=== PATIENT | male | born 1940 | race Caucasian/White ===

== ENCOUNTER → 2023-03-22 10:02 | Outpatient (REF) | payer MEDICARE, OTHER, SELFPAY ==
[2023-03-22 11:11] LABS: Blood Urea Nitrogen 55 mg/dl (9-20); Calcium 9.7 mg/dl (8.4-10.2); Carbon Dioxide 24 mmol/L (22-30); Chloride 105 mmol/L (98-107); Glucose 197 mg/dl (70-99); Potassium 5.3 mmol/L (3.5-5.1); Sodium 135 mmol/L (135-145)
[2023-03-22 13:11] LABS: Glycohemoglobin (HgbA1c) 7.7 % (4.0-5.6)
== END ==
LOC: REG 10:02
PROVIDERS: ATTENDING PHYSICIAN Specialist; FAMILY PHYSICIAN Internal Medicine
DX: E11.9 Type 2 diabetes mellitus without complications (principal); N18.32 Chronic kidney disease, stage 3b
CPT/HCPCS: 36415; 80048; 83036

== ENCOUNTER → 2023-05-17 11:07 | Outpatient (REF) | payer MEDICARE, OTHER, SELFPAY ==
[2023-05-17 12:34] LABS: Blood Urea Nitrogen 55 mg/dl (9-20); Calcium 10.3 mg/dl (8.4-10.2); Carbon Dioxide 20 mmol/L (22-30); Chloride 108 mmol/L (98-107); Glucose 209 mg/dl (70-99); Potassium 5.4 mmol/L (3.5-5.1); Sodium 135 mmol/L (135-145); eGFR 29.36
[2023-05-17 14:54] LABS: Glycohemoglobin (HgbA1c) 7.6 % (4.0-5.6)
== END ==
LOC: REG 11:07
PROVIDERS: ATTENDING PHYSICIAN Internal Medicine
DX: E11.9 Type 2 diabetes mellitus without complications (principal); N18.32 Chronic kidney disease, stage 3b
CPT/HCPCS: 36415; 80048; 83036

== ENCOUNTER → 2023-07-17 10:28 | Outpatient (REF) | payer MEDICARE, OTHER, SELFPAY | LOC: REG 10:28 | PROVIDERS: ATTENDING PHYSICIAN Internal Medicine Gastroenterology | DX: K51.90 Ulcerative colitis, unspecified, without complications (principal) | CPT/HCPCS: 83993 ==

== ENCOUNTER → 2023-08-05 10:04 | Outpatient (REF) | payer MEDICARE, OTHER, SELFPAY | LOC: RAD 10:04 | PROVIDERS: ATTENDING PHYSICIAN Internal Medicine Gastroenterology; FAMILY PHYSICIAN Internal Medicine | DX: R13.19 Other dysphagia (principal) | CPT/HCPCS: 74221 ==

== ENCOUNTER → 2023-08-30 11:28 | Outpatient (REF) | payer MEDICARE, OTHER, SELFPAY ==
[2023-08-30 12:59] LABS: Albumin 3.8 g/dl (3.5-5.0); Blood Urea Nitrogen 55 mg/dl (9-20); Calcium 9.3 mg/dl (8.4-10.2); Carbon Dioxide 24 mmol/L (22-30); Chloride 106 mmol/L (98-107); Glucose 147 mg/dl (70-99); Potassium 5.4 mmol/L (3.5-5.1); Sodium 139 mmol/L (135-145); eGFR 29.36
[2023-08-30 13:14] LABS: Glycohemoglobin (HgbA1c) 6.4 % (4.0-5.6)
[2023-08-30 14:50] LABS: Protein/creatinine Ratio 1.3; Urine Protein 167 mg/dl
[2023-09-01 10:21] LABS: Intact PTH 89.6 pg/ml (13.6-85.8)
== END ==
LOC: REG 11:28
PROVIDERS: ATTENDING PHYSICIAN Specialist; FAMILY PHYSICIAN Internal Medicine; REFERRING PHYSICIAN Internal Medicine Gastroenterology
DX: I10 Essential (primary) hypertension (principal); N18.32 Chronic kidney disease, stage 3b; R80.9 Proteinuria, unspecified; E11.9 Type 2 diabetes mellitus without complications
CPT/HCPCS: 36415; 80048; 80069; 82570; 83036; 83970; 84156

== ENCOUNTER → 2023-09-17 06:34 | Day surgery (SDC) | payer MEDICARE, OTHER, SELFPAY ==
[2023-09-17 09:34] LABS: Glucose - Point of Care 75 mg/dl (70-99)
== END ==
LOC: GI 06:34
PROVIDERS: ATTENDING PHYSICIAN Internal Medicine Gastroenterology
DX: K51.919 Ulcerative colitis, unspecified with unspecified complications (principal); D12.0 Benign neoplasm of cecum; D12.5 Benign neoplasm of sigmoid colon; K57.30 Diverticulosis of large intestine without perforation or abscess without bleeding; K55.20 Angiodysplasia of colon without hemorrhage; K64.0 First degree hemorrhoids; R13.10 Dysphagia, unspecified; K22.2 Esophageal obstruction; K31.7 Polyp of stomach and duodenum; K31.89 Other diseases of stomach and duodenum; Z79.01 Long term (current) use of anticoagulants
CPT/HCPCS: 45385; 45380; 43251; 43239; 88305; 82962; 88342

== ENCOUNTER → 2023-10-22 14:00 | Outpatient (REF) | payer MEDICARE, OTHER, SELFPAY ==
[2023-10-22 14:38] LABS: % Basophils 0.6 % (0-2); % Eosinophils 1.9 % (0-6); % Immature Granulocytes 0.3 % (0-0.5); % Lymphocytes 33.4 % (20.5-51.1); % Monocytes 10.5 % (1.7-9.3); % Neutrophils 53.3 % (42.2-75.2); Absolute Eosinophils 0.1 10^3/uL (0-0.7); Absolute Lymphocytes 2.1 10^3/uL (1.2-3.4); Absolute Monocytes 0.7 10^3/uL (0.1-0.6); Absolute Neutrophils 3.3 10^3/uL (1.4-6.5); Hematocrit 27.7 % (39.0-52.0); Hemoglobin 8.9 g/dL (13.0-18.0); Mean Corp Hgb Conc. 32.1 g/dL (33.0-37.0); Mean Corpuscular Volume 96.5 fL (80.0-94.0); Mean Platelet Volume 8.9 fL (7.4-10.4); Nucleated Red Blood Cells % 0 % (-); Platelet Count 122 10^3/uL (130-400); Red Blood Cell Count 2.87 10^6/uL (4.70-6.10); Red Cell Dist. Width 13.9 % (11.5-14.5); White Blood Cell Count 6.2 10^3/uL (4.8-10.8)
[2023-10-22 15:36] LABS: ALT (SGPT) 12 U/L (0-50); AST (SGOT) 23 U/L (17-59); Albumin 3.9 g/dl (3.5-5.0); Alkaline Phosphatase 104 U/L (38-126); Blood Urea Nitrogen 54 mg/dl (9-20); Calcium 9.8 mg/dl (8.4-10.2); Carbon Dioxide 21 mmol/L (22-30); Chloride 107 mmol/L (98-107); Direct Bilirubin 0.5 mg/dl (0.0-0.4); Glucose 119 mg/dl (70-99); Potassium 5.2 mmol/L (3.5-5.1); Sodium 142 mmol/L (135-145); Total Bilirubin 0.6 mg/dl (0.2-1.3); Total Protein 6.8 g/dl (6.3-8.2); eGFR 26.44
[2023-10-22 15:39] LABS: C-Reactive Protein < 5.00 mg/L (0.0-10.00)
== END ==
LOC: REG 14:00
PROVIDERS: ATTENDING PHYSICIAN Internal Medicine Gastroenterology; FAMILY PHYSICIAN Internal Medicine
DX: K51.90 Ulcerative colitis, unspecified, without complications (principal); E11.42 Type 2 diabetes mellitus with diabetic polyneuropathy
CPT/HCPCS: 36415; 80053; 82248; 83036; 85025; 86140

== ENCOUNTER → 2023-12-22 15:47 | Outpatient (REF) | payer MEDICARE, OTHER, SELFPAY | LOC: RAD 15:47 | PROVIDERS: ATTENDING PHYSICIAN Internal Medicine Gastroenterology; FAMILY PHYSICIAN Internal Medicine | DX: R19.00 Intra-abdominal and pelvic swelling, mass and lump, unspecified site (principal) | CPT/HCPCS: 76700 ==

== ENCOUNTER → 2024-01-25 11:28 | Outpatient (REF) | payer MEDICARE, OTHER, SELFPAY ==
[2024-01-25 12:46] LABS: % Basophils 0.5 % (0-2); % Eosinophils 0.9 % (0-6); % Immature Granulocytes 0.5 % (0-0.5); % Lymphocytes 23.5 % (20.5-51.1); % Monocytes 10.5 % (1.7-9.3); % Neutrophils 64.1 % (42.2-75.2); Absolute Eosinophils 0.1 10^3/uL (0-0.7); Absolute Lymphocytes 1.5 10^3/uL (1.2-3.4); Absolute Monocytes 0.7 10^3/uL (0.1-0.6); Absolute Neutrophils 4.2 10^3/uL (1.4-6.5); Hematocrit 27.4 % (39.0-52.0); Hemoglobin 8.6 g/dL (13.0-18.0); Mean Corp Hgb Conc. 31.4 g/dL (33.0-37.0); Mean Corpuscular Hgb 30.3 pg (27.0-31.0); Mean Corpuscular Volume 96.5 fL (80.0-94.0); Mean Platelet Volume 9.1 fL (7.4-10.4); Nucleated Red Blood Cells % 0 % (-); Platelet Count 141 10^3/uL (130-400); Red Blood Cell Count 2.84 10^6/uL (4.70-6.10); Red Cell Dist. Width 13.9 % (11.5-14.5); White Blood Cell Count 6.6 10^3/uL (4.8-10.8)
[2024-01-25 13:52] LABS: ALT (SGPT) 14 U/L (0-50); AST (SGOT) 22 U/L (17-59); Albumin 3.8 g/dl (3.5-5.0); Alkaline Phosphatase 121 U/L (38-126); Blood Urea Nitrogen 65 mg/dl (9-20); Calcium 8.9 mg/dl (8.4-10.2); Carbon Dioxide 24 mmol/L (22-30); Chloride 104 mmol/L (98-107); Direct Bilirubin 0.3 mg/dl (0.0-0.4); Glucose 148 mg/dl (70-99); Potassium 5.1 mmol/L (3.5-5.1); Sodium 139 mmol/L (135-145); Total Bilirubin 0.4 mg/dl (0.2-1.3); Total Protein 6.8 g/dl (6.3-8.2); eGFR 26.44
== END ==
LOC: REG 11:28
PROVIDERS: ATTENDING PHYSICIAN Internal Medicine Gastroenterology; FAMILY PHYSICIAN Internal Medicine
DX: K51.90 Ulcerative colitis, unspecified, without complications (principal)
CPT/HCPCS: 36415; 80048; 80076; 85025; 86140

== ENCOUNTER → 2024-03-01 13:47 | Outpatient (REF) | payer MEDICARE, OTHER, SELFPAY | LOC: HWRCS 13:47 | PROVIDERS: ATTENDING PHYSICIAN Internal Medicine Cardiovascular Disease; FAMILY PHYSICIAN Internal Medicine | DX: I48.0 Paroxysmal atrial fibrillation (principal) | CPT/HCPCS: 93306 ==

== ENCOUNTER → 2024-03-21 12:13 | Outpatient (REF) | payer MEDICARE, OTHER, SELFPAY ==
[2024-03-21 13:34] LABS: % Basophils 0.4 % (0-2); % Eosinophils 0.6 % (0-6); % Immature Granulocytes 0.4 % (0-0.5); % Lymphocytes 22.9 % (20.5-51.1); % Monocytes 11.3 % (1.7-9.3); % Neutrophils 64.4 % (42.2-75.2); Absolute Lymphocytes 1.6 10^3/uL (1.2-3.4); Absolute Monocytes 0.8 10^3/uL (0.1-0.6); Absolute Neutrophils 4.5 10^3/uL (1.4-6.5); Hematocrit 26.9 % (39.0-52.0); Hemoglobin 8.2 g/dL (13.0-18.0); Mean Corp Hgb Conc. 30.5 g/dL (33.0-37.0); Mean Corpuscular Hgb 29.4 pg (27.0-31.0); Mean Corpuscular Volume 96.4 fL (80.0-94.0); Nucleated Red Blood Cells % 0 % (-); Platelet Count 151 10^3/uL (130-400); Red Blood Cell Count 2.79 10^6/uL (4.70-6.10)
[2024-03-21 14:49] LABS: Free T4 0.81 ng/dl (0.78-2.19)
[2024-03-21 14:51] LABS: Protein/creatinine Ratio 1.5; Urine Protein 136 mg/dl
[2024-03-21 15:34] LABS: ALT (SGPT) 12 U/L (0-50); AST (SGOT) 22 U/L (17-59); Albumin 4.2 g/dl (3.5-5.0); Alkaline Phosphatase 149 U/L (38-126); Blood Urea Nitrogen 64 mg/dl (9-20); Calcium 9.2 mg/dl (8.4-10.2); Carbon Dioxide 21 mmol/L (22-30); Chloride 107 mmol/L (98-107); Direct Bilirubin 0.6 mg/dl (0.0-0.4); Glucose 80 mg/dl (70-99); HDL Cholesterol 39 mg/dl; LDL Cholesterol, Calculated 80 mg/dl; Phosphorus 4.2 mg/dl (2.5-4.5); Potassium 5.8 mmol/L (3.5-5.1); Sodium 140 mmol/L (135-145); Total Bilirubin 0.8 mg/dl (0.2-1.3); Total Cholesterol 141 mg/dl (50-199); Total Protein 7.3 g/dl (6.3-8.2); Triglyceride 114 mg/dl (10-149); Very Low Density Lipoprotein 22 mg/dl (0-30); eGFR 27.83
[2024-03-22 10:24] LABS: Intact PTH 90.6 pg/ml (13.6-85.8)
== END ==
LOC: REG 12:13
PROVIDERS: ATTENDING PHYSICIAN Specialist; FAMILY PHYSICIAN Internal Medicine
DX: N18.32 Chronic kidney disease, stage 3b (principal); Z94.4 Liver transplant status; E78.2 Mixed hyperlipidemia; E03.9 Hypothyroidism, unspecified; Z12.5 Encounter for screening for malignant neoplasm of prostate
CPT/HCPCS: 36415; 80061; 80069; 80076; 82570; 83970; 84156; 84439; 84443; 85025; G0103

== ENCOUNTER → 2024-03-23 15:51 | Outpatient (REF) | payer MEDICARE, OTHER, SELFPAY ==
[2024-03-23 16:35] LABS: % Basophils 0.4 % (0-2); % Eosinophils 1.6 % (0-6); % Immature Granulocytes 0.3 % (0-0.5); % Lymphocytes 34.3 % (20.5-51.1); % Monocytes 10.3 % (1.7-9.3); % Neutrophils 53.1 % (42.2-75.2); Absolute Eosinophils 0.1 10^3/uL (0-0.7); Absolute Lymphocytes 2.4 10^3/uL (1.2-3.4); Absolute Monocytes 0.7 10^3/uL (0.1-0.6); Absolute Neutrophils 3.7 10^3/uL (1.4-6.5); Hematocrit 26.7 % (39.0-52.0); Hemoglobin 8.4 g/dL (13.0-18.0); Mean Corp Hgb Conc. 31.5 g/dL (33.0-37.0); Mean Corpuscular Hgb 30.3 pg (27.0-31.0); Mean Corpuscular Volume 96.4 fL (80.0-94.0); Mean Platelet Volume 8.8 fL (7.4-10.4); Nucleated Red Blood Cells % 0 % (-); Platelet Count 133 10^3/uL (130-400); Red Blood Cell Count 2.77 10^6/uL (4.70-6.10); Reticulocyte Count 2.6 % (0.4-2.8)
[2024-03-23 17:03] LABS: ALT (SGPT) 12 U/L (0-50); AST (SGOT) 21 U/L (17-59); Albumin 3.7 g/dl (3.5-5.0); Alkaline Phosphatase 139 U/L (38-126); Blood Urea Nitrogen 55 mg/dl (9-20); Direct Bilirubin 0.4 mg/dl (0.0-0.4); Iron 117 ug/dl (49-181); LDH 163 U/L (120-246); Total Bilirubin 0.5 mg/dl (0.2-1.3); Total Protein 6.9 g/dl (6.3-8.2)
[2024-03-23 17:12] LABS: Percent Saturation 35 % (20-50); Total Iron Binding Capacity 328 ug/dl (261-462)
[2024-03-23 17:15] LABS: Erythrocyte Sed Rate 78 mm/hour (0-20)
[2024-03-23 17:38] LABS: Ferritin 44.8 ng/ml (17.9-464.0)
[2024-03-23 18:09] LABS: Folate 19.4 ng/ml (2.76-20); Vitamin B12 1000 pg/ml (239-931)
[2024-03-25 22:13] LABS: Erythropoietin (EPO) 18 mU/mL (4-27)
[2024-03-26 02:09] LABS: Haptoglobin 122 mg/dL (30-200)
== END ==
LOC: REG 15:51
PROVIDERS: ATTENDING PHYSICIAN Internal Medicine Hematology & Oncology; FAMILY PHYSICIAN Internal Medicine
DX: C44.82 Squamous cell carcinoma of overlapping sites of skin (principal); D63.1 Anemia in chronic kidney disease; Z79.899 Other long term (current) drug therapy
CPT/HCPCS: 36415; 80076; 82565; 82607; 82668; 82728; 82746; 82784; 83010; 83521; 83540; 83550; 83615; 84155; 84165; 84520; 85025; 85045; 85652; 86334

== ENCOUNTER → 2024-03-27 12:59 | Outpatient (REF) | payer MEDICARE, OTHER, SELFPAY ==
[2024-03-27 14:18] LABS: Blood Urea Nitrogen 46 mg/dl (9-20); Calcium 9.3 mg/dl (8.4-10.2); Carbon Dioxide 22 mmol/L (22-30); Chloride 105 mmol/L (98-107); Glucose 164 mg/dl (70-99); Potassium 5.2 mmol/L (3.5-5.1); Sodium 138 mmol/L (135-145); eGFR 29.36
== END ==
LOC: REG 12:59
PROVIDERS: ATTENDING PHYSICIAN Hospitalist; FAMILY PHYSICIAN Internal Medicine
DX: N18.32 Chronic kidney disease, stage 3b (principal); R80.9 Proteinuria, unspecified
CPT/HCPCS: 36415; 80048

== ENCOUNTER 2024-04-13 12:05 | Inpatient (IN) | payer MEDICARE, OTHER, SELFPAY ==
[2024-04-13] VITALS (8 sets, daily range): BP systolic 135–171; BP diastolic 64–120; BMI 26.3; BMI 27.1
--- NOTE | 2024-04-13 08:34 | ED.GENMED ---
History of Present Illness
General
Chief Complaint: Breathing Problem
Source: patient
Exam Limitations: none
Time Seen by Provider: 04/13/24 08:09
Nursing documentation reviewed up to this point in time: agreed with
History of Present Illness
History of Present Illness:
Patient with history of chronic atrial fibrillation and renal insufficiency, presents to ED secondary to worsening shortness of breath at rest, but worse with exertion over the past 5 days. Denies chest pain. Denies dizziness. Denies chest
palpitations. Denies coughing. Denies nausea, vomiting, or diarrhea. Denies recent illness. Denies recent travel or surgery. Patient does take Eliquis chronically. Denies previous history of similar symptoms. Of note, secondary to weakness
and fatigue associated with chronic anemia, patient received iron transfusion 1 day prior to onset of his symptoms.
Past History
Past History
ED Past Medical History: Arrthythmia (Atrial fibrillation), CAD, HTN, Hypercholesterolemia, IDDM and Other (History of colitis he, renal insufficiency, gout, osteoarthritis, hypothyroidism)
ED Past Surgical History: Cardiac (cabg, and ablation) and Other (liver transplant, hernia repair, and skin cancer removal)
Social History
Tobacco: Former smoker
Alcohol: None
Drug: None
Living: with family
Employment: Retired
Family History
Family History: Other (nc)
Review of Systems
Review of Systems
Allergies reviewed?: Yes
All Other Systems: ROS reviewed and negative except as documented in HPI and ROS
Constitutional: Reports no symptoms; Denies fever or chills
EENT: Reports no symptoms
Respiratory: Reports trouble breathing; Denies cough
Cardiac: Reports no symptoms; Denies chest pain or palpitations
ABD/GI: Reports no symptoms; Denies nausea or vomiting
: Reports no symptoms
Musculoskeletal: Reports no symptoms; Denies edema
Skin: Reports no symptoms
Neurological: Reports no symptoms
Phy Exam
Physical Exam
Physical Exam:
Physical Exam
General: mild distress, not acutely ill. afebrile.
Head: nc/at. eomi
Neck: supple. normal range of motion. no jvd.
Heart: s1/s2 regular rate and rhythm, no murmur.
Lungs: mild respiratory distress. crackles bilaterally
Abdomen: normal bowel sounds. not tender. no distention
Neuro: alert and oriented x 3. no focal neurological deficits
Skin: no rash
Psychiatric: well kept. interactive and cooperative
Extremities: no edema. no calf tenderness.
Scores
Heart Failure Risk
Heart Failure Risk Score: Yes
History of Stroke or TIA: No
History of intubation for respiratory distress: No
Heart rate on ED arrival >/= 110: No
SaO2 <90% on arrival on room air: Yes
HR >/=110 during 3min walk test (or too ill to perform test): No
ECG has acute ischemic changes: No
Urea >/=12mmol/L (BUN 33.6mg/dL): Yes
Serum CO2>/=35mmol/L: No
Troponin I or T elevated to PA Level (0.4mg/dL): No
NT-proBNP >/=5,000ng/L (5,000pg/ml): Yes
HF Risk Score: 3
Admission Status: HIGH RISK 15.9% Consider SNF treatment or admission to hospital
Course
Orders/Labs/Results
Orders:
Orders
04/13/24 Breakfast
2000 calorie (17 carb) Diabetic
At Your Request: Full Participation
04/13/24 08:12
Electrocardiogram (*1) Urgent
Reason for Study: Shortness of Breath
EKG- Treatment ONCE
04/13/24 08:13
CR Chest - 2 Views Urgent
Comment:
Reason For Exam: sob
04/13/24 08:35
Complete Blood Count/With Diff Urgent
Comprehensive Metabolic Panel Urgent
Glycohemoglobin (HgbA1c) Urgent
Magnesium Urgent
NT-proBNP Urgent
TSH Urgent
Comment: ADD
Troponin I Urgent
04/13/24 09:19
Apixaban [Eliquis] 2.5 mg PO NOW STA
Furosemide [Lasix] 20 mg IV NOW STA
04/13/24 10:31
CT Chest W/o Iv Contrast Urgent
Comment:
Reason For Exam: SOB, RML opacification
04/13/24 11:35
Add On- LAB Routine
Tests Added?: TSH
CARDIOLOGY CONSULT Routine
Consulting Provider: Nathan Pizano
Was physician already notified: Yes
Reason for consult: CHF
04/13/24 11:41
CT Abd/pel (oral only)-DH Only Routine
Comment:
Reason For Exam: lesion sen on CT chest, large R abd hernia
Iohexol [Omnipaque] See Protocol PO NOW STA
04/13/24 11:47
Admit/Transfer Patient As Directed
Co-Sign Provider:
Level of Care: Inpatient admission
Assign to:: Telemetry
Physician / Group: hospitalist
Diagnosis: CHF
Reason for Telemetry: Arrhythmia
Date to Stop Telemetry: 04/16/24
Time to Stop Telemetry: 11:00
Reason for Hospitalization: CHF
Expected length of stay greater than two midnights?: Yes
ELOS- Estimated Length of Stay in days: 3
I certify the patient meets the requirements for IP care: Yes
PRN Pain Medication Management As Directed
May give lesser potent ordered pain med per pt: Yes
preference::
Protocol:: Medication orders for pain may be administered in a
manner that supports deferring to patient preference
when the pt is:
- Requesting an ordered lesser potent pain medication.
Least to most potent pain medications are defined
as: acetaminophen < NSAID < tramadol < opioids
(morphine, oxycodone, hydromorphone).
- Requesting a lesser dose of the same medication IF
ORDERED.
- Requesting a less intrusive route of administration
if both routes are prescribed by the provider (PO <
IV).
04/13/24 11:48
Code Status As Directed
Resuscitation Status: Full Code
04/13/24 12:00
Rx Incentive Spirometry [RESP] Routine
Frequency: q1h while awake
04/13/24 14:40
Acetaminophen [Tylenol] 650 mg PO Q6HPRN PRN
Dextrose 50%-Water [Dextrose 50% Syringe] 12.5 grams IV [id number] PRN
Glucagon [GlucaGen] 1 mg IM PRN PRN
Ondansetron Injectable [Zofran] 4 mg IV Q8HPRN PRN
Polyethylene Glycol Powder [Miralax] 17 grams PO DAILYPRN PRN
04/13/24 14:40
Add On- LAB Routine
Tests Added?: HgbA1C to today's lab
HF DIETARY CONSULT Routine
HF EDUCATOR CONSULT Routine
Comment:
Activity As Directed
Activity Level: Out of Bed-Early Mobility
Intake/ Output As Directed
Frequency: Per unit guidelines
Patient Education As Directed
Type: CHF folder
Comment: give on admission. Document in Interdisciplinary Education record
Sleep Apnea Assessment by RN As Directed
Comment:
Physician Instructions:
Vital Signs As Directed
Frequency: Other
Additional Instructions:: Q12 or per unit guidelines if more frequent.
Weight As Directed
Frequency: Daily
Type of Scale: Standing Scale
Comment: Daily morning weight. If unable to stand, use balanced bed scale.
Weight As Directed
Frequency: Once
Type of Scale: Standing Scale
Comment: Upon Admission. If unable to stand, use balanced bed scale.
Pulse Ox/cont/shift [RESP] Routine
Quantity: 1
Special Instructions: Daily pulse oximetry at rest. If greater than 92% at rest also obtain pulse oximetry
while ambulating as tolerated.
04/13/24 16:30
Insulin Aspart Corrective Mod [Novolog Flexpen-Moderate Resistance] See Protocol SC AC
04/13/24 18:00
Pravastatin Sodium [Pravachol] 40 mg PO QPM
Sulfasalazine [Azulfidine] 1,000 mg PO QPM
04/13/24 20:00
Apixaban [Eliquis] 2.5 mg PO BID
Metoprolol [Lopressor] 25 mg PO BID
Mycophenolate Mofetil 500 mg PO BID
cyclosporine modified 50 mg PO BID
insulin lispro protamin-lispro [Humalog Mix 75-25 KwikPen] 18 unit SQ BID
04/13/24 22:00
dutasteride 0.5 mg PO HS
04/14/24 06:00
Complete Blood Count/With Diff IN AM
Comprehensive Metabolic Panel IN AM
Glycohemoglobin (HgbA1c) IN AM
Magnesium IN AM
Levothyroxine [Synthroid] 100 mcg PO DAILY@0600
04/14/24 08:00
Amlodipine [Norvasc] 10 mg PO DAILY
Calcitriol [Rocaltrol] 0.25 mcg PO DAILY
FOLic ACID [Folvite] 1 mg PO DAILY
Prednisone [Deltasone] 5 mg PO MoWeFr@0800
Sulfasalazine [Azulfidine] 500 mg PO DAILY
04/16/24 11:00
DC Protocol for Telemetry ONCE
Abnormal Lab Results
04/13/24
08:35
RBC 2.98 L 10^6/uL
(4.70-6.10)
Hgb 9.1 L g/dL
(13.0-18.0)
Hct 29.4 L %
(39.0-52.0)
MCV 98.7 H fL
(80.0-94.0)
MCHC 31.0 L g/dL
(33.0-37.0)
Absolute Monos (auto) 1.0 H 10^3/uL
(0.1-0.6)
Monocytes % 11.9 H %
(1.7-9.3)
Chloride 109 H mmol/L
(98-107)
BUN 56 H mg/dl
(9-20)
Creatinine 2.0 H mg/dL
(0.7-1.3)
Glucose 128 H mg/dl
(70-99)
Alkaline Phosphatase 192 H U/L
(38-126)
TSH 18.30 H uIU/ml
(0.47-4.68)
04/13/24 08:35
04/13/24 08:35
Vital Signs
Initial and Last Documented VS:
Initial Vital Signs
BP
160/106
04/13/24 08:11
Last Documented Vital Signs
Temp Pulse Resp BP Pulse Ox
97.9 F 75 20 167/94 95
04/13/24 15:09 04/13/24 15:09 04/13/24 15:09 04/13/24 15:09 04/13/24 15:09
MDM/Problems Addressed
MDM/Problems Addressed:
During short ambulation, patient noted to become mildly short of breath with desaturation (88% on room air), as well as mild chest tightness.
History, exam, blood work, and chest x-ray, consistent with likely hypoxia and associated shortness of breath, secondary to fluid overload. Patient will be admitted for IV diuretic and continual supplemental oxygen administration.
*EKG
Interpreted by ED Provider?: Yes
EKG Intrepretation Date: 04/13/24
Heart Rate: 89
Rate: normal
Rhythm: a-fib and PVC's
Morrison: normal axis
*Critical Care Note
Total Time (30-74mins, 75-104mins- exclusive of procedures): Not Applicable
ED Attending Note
-
Portions of this chart may have been created with voice recognition software.� Occasional wrong word or��sound alike� substitutions may have occurred due to the inherent limitations of voice recognition software.
Discharge Plan
Departure
Patient Disposition: Admit
Date of Disposition: 04/13/24
Time of Disposition: 09:33
Admit to: Telemetry
Presentation/result/management discussed w/ accepting MD/DO: Hospitalist
Discharge Problem:
DYSON (dyspnea on exertion), Fluid overload, Hypoxia
Interventions
Interventions:
*Risk Screen - Suicide Last Done: 04/13/24 08:25
*General Assessment Last Done: 04/13/24 08:18
*Neglect/Abuse Screening Last Done: 04/13/24 08:21
*ED- Fall Risk Assessment Last Done: 04/13/24 08:22
*ED COVID-19 Vaccine History Last Done: 04/13/24 08:25
*Nursing Disposition Last Done: 04/13/24 14:27
ED- Cardiac Assessment Last Done: 04/13/24 08:18
ED- Pulmonary Assessment Last Done: 04/13/24 08:24
Discharge Date and Time
Discharge Date/Time: 04/13/24 14:27
[2024-04-13 08:41] LABS: % Basophils 0.4 % (0-2); % Eosinophils 0.6 % (0-6); % Immature Granulocytes 0.4 % (0-0.5); % Lymphocytes 22.8 % (20.5-51.1); % Monocytes 11.9 % (1.7-9.3); % Neutrophils 63.9 % (42.2-75.2); Absolute Eosinophils 0.1 10^3/uL (0-0.7); Absolute Lymphocytes 1.9 10^3/uL (1.2-3.4); Absolute Neutrophils 5.4 10^3/uL (1.4-6.5); Hematocrit 29.4 % (39.0-52.0); Hemoglobin 9.1 g/dL (13.0-18.0); Mean Corpuscular Hgb 30.5 pg (27.0-31.0); Mean Corpuscular Volume 98.7 fL (80.0-94.0); Mean Platelet Volume 8.6 fL (7.4-10.4); Nucleated Red Blood Cells % 0 % (-); Platelet Count 192 10^3/uL (130-400); Red Blood Cell Count 2.98 10^6/uL (4.70-6.10); Red Cell Dist. Width 14.2 % (11.5-14.5); White Blood Cell Count 8.5 10^3/uL (4.8-10.8)
[2024-04-13 09:02] LABS: ALT (SGPT) 11 U/L (0-50); AST (SGOT) 20 U/L (17-59); Albumin 3.8 g/dl (3.5-5.0); Alkaline Phosphatase 192 U/L (38-126); Blood Urea Nitrogen 56 mg/dl (9-20); Calcium 9.6 mg/dl (8.4-10.2); Carbon Dioxide 22 mmol/L (22-30); Chloride 109 mmol/L (98-107); Estimated Creatinine Clearance 30 ml/min; Glucose 128 mg/dl (70-99); Magnesium 1.7 mg/dl (1.6-2.3); Potassium 5.1 mmol/L (3.5-5.1); Sodium 139 mmol/L (135-145); Total Bilirubin 0.8 mg/dl (0.2-1.3); Total Protein 7.1 g/dl (6.3-8.2); eGFR 32.91
[2024-04-13 09:05] LABS: NT-proBNP 7830 pg/ml; Troponin I 0.026 ng/ml
[2024-04-13] MEDS: ELIQUIS 2.5 MG PO ×2 (09:43→20:20)
[2024-04-13] MEDS: LASIX 20 MG IV (09:43)
--- NOTE | 2024-04-13 10:29 | HPS.HSE ---
Family Physician
-
Family Physician: Juanjose Anthony
Chief Complaint
-
SOB
History of Present Illness
83yo F with liver transplant, diverticulosis UC, HTN, Afib, CAD s/p SD, HTN, HLD, DM, gout, hypothyroidism, CKD came with dyspnea on excertion started 1 week ago with orthopnea and anxiety. No chest pain noted. Patient was walking in hallway in ED
with ED physician and desaturated to 87% on exertion. WIth elevated BNP - concern for subacute CHF.
Medical History
Past Medical History
Past Medical History: Reports Other
Additional Past Medical History:
See HPI
Past Surgical History: Reports Other
Additional Past Surgical History:
hernia repair, liver transplant
Social History
Tobacco: Non-smoker
Alcohol: None
Drug: None
Family History
Family History: Not pertinent
Allergies / Home Medications
Allergies reflects when Allergies were last updated in [employer].
Home Medications with original date entered in [employer]
Allergy/Medication List:
Allergies
Allergy/AdvReac Type Severity Reaction Status Date / Time
No Known Allergies Allergy Verified 04/13/24 08:16
Home Medications
metoprolol tartrate 25 mg tablet 25 mg PO BID Blood pressure 05/16/13
cyclosporine modified 50 mg capsule 50 mg PO BID anti-rejection 07/05/18
folic acid 1 mg tablet 1 mg PO DAILY Supplement 07/05/18
prednisone 5 mg tablet 5 mg PO MOWEFR Anti-rejection 07/05/18
apixaban 2.5 mg tablet (Eliquis) 2.5 mg PO BID ##0 01/16/20
amlodipine 10 mg tablet (Norvasc) 10 mg PO DAILY 04/13/24
calcitriol 0.25 mcg capsule 0.25 mcg PO DAILY 04/13/24
dutasteride 0.5 mg capsule 0.5 mg PO HS 04/13/24
insulin lispro protamine-lispro 100 unit/mL (75-25) subcutaneous pen (Humalog Mix 75-25 KwikPen) 18 unit SQ BID 04/13/24
levothyroxine 100 mcg tablet (Synthroid) 100 mcg PO DAILY 04/13/24
mycophenolate mofetil 500 mg tablet 500 mg PO BID 04/13/24
pravastatin 40 mg tablet 40 mg PO QPM 04/13/24
sulfasalazine 500 mg tablet 1,000 mg PO QPM 04/13/24
sulfasalazine 500 mg tablet 500 mg PO DAILY 04/13/24
vitamins A,C,W-pajv-nxbqiq 2,148 mcg-113 mg-45 mg-17.4 mg tablet (PreserVision AREDS) 1 tab PO DAILY 04/13/24
Review of Systems
-
History Source: Patient
A 12 point ROS was completed and negative except as noted: Yes
Constitutional: Reports Fatigue
Respiratory: Reports Trouble Breathing
Physical Exam
Vital Signs
Vital Signs
Temp Pulse Resp BP Pulse Ox
98.3 F 88 25 147/93 96
04/13/24 08:16 04/13/24 10:15 04/13/24 10:15 04/13/24 10:00 04/13/24 08:24
Physical Exam
General: No Apparent Distress, Comfortable and Conversant
HEENT: Anicteric, Moist mucous membranes and Atraumatic
Respiratory: Rales (L); No Wheezes, Rhonchi or Crackles
Cardiac: S1/S2 and Irregular Rhythm; No Murmur
GI: Soft, Non Tender, Non Distended and Other (R large abd hernia)
Genito-urinary: No costovertebral tender
Musculoskeletal: No Clubbing, No Cyanosis and No Edema
Skin: Warm; No Dry or Rash
Neuro: Awake, Alert, Oriented and AO x 3
Psych: Calm
Laboratory Results
-
04/13/24 08:35
04/13/24 08:35
Laboratory Results
Total Bilirubin 0.8 mg/dl (0.2-1.3) 04/13/24 08:35
AST 20 U/L (17-59) 04/13/24 08:35
ALT 11 U/L (0-50) 04/13/24 08:35
Alkaline Phosphatase 192 U/L (38-126) H 04/13/24 08:35
Troponin I 0.026 ng/ml 04/13/24 08:35
Data Reviewed
-
Diagnostic Radiology: Report Reviewed by me
Lab Data: Labs Reviewed by me
Impression/Plan
-
A/P:
#Acute on chronic HFpEF exacerbation
#Afib, unspecified
Lasix, daily weight, follow Cr and BMP
Echo 03/01/24 - EF 55, no regional wall motion abnormalities seen, stage II diastolic dysfunction, severe L atrial dilation, moderate , dilated aortic root 4.3cm and mild pulmonary HTN
CT with subsegmental atelectasis and tiny pleural effusions - incentive spirometry
EKG with Afib
#R abdominal hernia
not painful, not incarcerated
Hx of repar that failed
Outpatient [facility] follow up advised
#Chronic anemia
most likely 2/2 UC
cont to follow CBC
#Chronic alk. phos elevation
#Hx of liver transplant
cont antirejection drugs
follow LFT
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
#DM type 2 with nephropathy
Insulin, DM diet, accuchecks and sliding scale
#CKD stage 3b
#HLD
#Essential HTN
#Hx of DVT
#UC
#Hypothyroidism
#Essential HTN
cont home meds
check TSH
DVT ppx on ELiquis renal adjusted
Full code - discussed in details with patient
I have spent at least 77min reviewing chart, test results, communication with consultants and direct patient care
--- NOTE | 2024-04-13 11:40 | CON.CAR ---
Addendum entered and electronically signed by Nathan Pizano MD 04/13/24 16:22:
Patient seen and examined in collaboration with [employer]; agree with below.
-83-year-old male with CAD status-post CABG (2010), permanent atrial fibrillation (on Eliquis), moderate , hypertension, hyperlipidemia, prior liver transplantation, anemia, diabetes, and CKD admitted with dyspnea; patient is not on Lasix at home.
-Recommend Lasix 40 mg IV twice daily for now for acute HFpEF; patient will likely need Lasix on discharge to home.
-Monitor renal function.
-Recent echo 2 months ago; no need to repeat.
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
-Will continue to follow.
Original Note:
Consultation
Consultation Request
Date/Time Consultation Requested: 04/13/24 1135
Date/Time Consultation Performed: 04/13/24 1200
Requesting Provider: Dr. Flannery
Performing Provider: Estefania WILSON for Dr. Pizano
Reason for Consultation: CHF
Medical History
-
Chief Complaint: SOB
History of Present Illness:
83 y/o male (cardiology patient of Dr. Barr) with moderate , permanent AFIB on Eliquis, CAD with hx CABG 2010, hypertension, dyslipidemia, anemia, CKD3, DM2, and remote liver tx who is here for evaluation of SOB. Briefly, his chronic DYSON has
been worsening recently. Then, on Wednesday, he had an iron infusion and since then has not been able to get a full breath. He is in no distress at the time of my assessment. No fever or chills. Is having cough. No CP. No orthopnea, weight gain, or
significant edema.
Past Medical History
Past Medical History: Arrhythmias, CAD, HTN and Hypercholesterolemia
Social History
Tobacco: Non-Smoker
Personal:
Living: With Family
Family History
Family History: Reviewed & Not Pertinent
Allergies / Home Medications
Allergy/AdvReac Type Severity Reaction Status Date / Time
No Known Allergies Allergy Verified 04/13/24 08:16
�Medication �Instructions �Recorded �Confirmed �Type
metoprolol tartrate 25 mg tablet 25 mg PO BID Blood pressure 05/16/13 04/13/24 History
cyclosporine modified 50 mg capsule 50 mg PO BID anti-rejection 07/05/18 04/13/24 History
folic acid 1 mg tablet 1 mg PO DAILY Supplement 07/05/18 04/13/24 History
prednisone 5 mg tablet 5 mg PO MOWEFR Anti-rejection 07/05/18 04/13/24 History
apixaban 2.5 mg tablet (Eliquis) 2.5 mg PO BID ##0 01/16/20 04/13/24 Rx
amlodipine 10 mg tablet (Norvasc) 10 mg PO DAILY 04/13/24 04/13/24 History
calcitriol 0.25 mcg capsule 0.25 mcg PO DAILY 04/13/24 04/13/24 History
dutasteride 0.5 mg capsule 0.5 mg PO HS 04/13/24 04/13/24 History
insulin lispro protamine-lispro 18 unit SQ BID 04/13/24 04/13/24 History
100 unit/mL (75-25) subcutaneous
pen (Humalog Mix 75-25 KwikPen)
levothyroxine 100 mcg tablet 100 mcg PO DAILY 04/13/24 04/13/24 History
(Synthroid)
mycophenolate mofetil 500 mg tablet 500 mg PO BID 04/13/24 04/13/24 History
pravastatin 40 mg tablet 40 mg PO QPM 04/13/24 04/13/24 History
sulfasalazine 500 mg tablet 1,000 mg PO QPM 04/13/24 04/13/24 History
sulfasalazine 500 mg tablet 500 mg PO DAILY 04/13/24 04/13/24 History
vitamins A,C,S-lwok-ieaivr 2,148 1 tab PO DAILY 04/13/24 04/13/24 History
mcg-113 mg-45 mg-17.4 mg tablet
(PreserVision AREDS)
Review of Systems
-
History Source: Patient
All other systems: Negative unless noted
Respiratory: Trouble Breathing
Physical Exam
Vital Signs
Temp Pulse Resp BP Pulse Ox
98.3 F 88 25 147/93 96
04/13/24 08:16 04/13/24 10:15 04/13/24 10:15 04/13/24 10:00 04/13/24 08:24
Lab Results
04/13/24 08:35
04/13/24 08:35
Troponin I 0.026 ng/ml 04/13/24 08:35
Fpn-A-Skrqkpybufx Pept 7830 pg/ml 04/13/24 08:35
Physical Exam
General: Well Developed, Well Nourished and No Apparent Distress
HEENT: Normocephalic and Anicteric
Respiratory: Crackles (left base)
Cardiac: Irregular Rhythm
Skin: Warm and Dry
Neuro: AO x 3
Psych: Calm
Impression / Plan
-
Acute HFpEF:
-recent echo as below
-agree with IV diuresis, which requires intensive monitoring - 40 mg IV BID ordered by me
-CHF education, sodium/fluid restriction
, moderate:
-monitor over time by echo
-volume plan as above
Permanent afib:
-continue metoprolol and Eliquis
CAD with hx CABG:
-stable without CP
-continue Eliquis, statin, BB
HTN:
-BP elevated in ER
-did not take AM BP meds- resume and monitor
Data:
Echo 03/01/24: EF 55%, Stage II diastolic dysfunction, normal right ventricular size with mildly depressed systolic function, severe left atrial dilation. Mild mitral regurgitation. Moderate aortic stenosis (peak/mean 35/18, YASSINE 1.2 cm2) and
mild/moderate regurgitation. Mild to moderate tricuspid regurgitation. Mildly dilated aortic root and ascending aorta (SOV 3.8 cm, Asc Ao 4.3 cm). The IVC is of normal size but does not collapse. Right atrial pressure estimated at 8 mmHg. Mild
pulmonary hypertension. PASP estimated at 41 mmHg.
Data Reviewed
-
EKG: Tracing Personally Visualized and interpreted (AFIB 89 BPM, PVC)
Radiology: Report Reviewed by me (CXR: Some right middle lobe opacification which could represent pneumonia as well as small layering right pleural effusion. Pleural plaques again seen.)
Medical Tests (Nuc Med, Echo etc): Report Reviewed by me (Echo 03/01/24: )
Labs: Labs Reviewed by me
[2024-04-13] MEDS: OMNIPAQUE 50 ML PO (12:13)
--- NOTE | 2024-04-13 14:08 | CON.ONC ---
Impression
Impression
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
Left axillary adenopathy
Dyspnea
HFpEF with CHF
Status post liver transplantation immunosuppression
Chronic renal insufficiency
Anemia of chronic renal insufficiency
Diabetes mellitus
Pleural plaques fairly significant could represent malignancy
Plan
Plan
Patient has had known metastatic squamous cell from skin primary- left supraclavicular biopsy 12/30
Squamous lesions lesions tend to be slow-growing and may be less PET avid
Immunosuppressive therapy may potentiate SCC progression
Pleural plaques may be contributing to his sensation of dyspnea, would be suspicious that they may be malignant
Immunotherapy such as Libtayo not an option with liver transplantation
Consider IR sampling of the pleural plaque if possible
Patient previously previously refused outpatient recommendation for axillary isrrael sampling
Review CT scan of the abdomen and pelvis
Previously offered erythropoietin support for anemia of chronic renal insufficiency
Could repeat outpatient PET CT scan
Patient History
History of Present Illness
Patient�is�an�82�year�old�man�with�history�of�orthotopic�liver�transplant�1987[facility]at[facility]�previous�T,�[facility], now�recently�retired�who�presents�for�his�initial�medical�oncology�evaluation�for�recurrent�squamous�cell�carcinoma
and�basal�cell�carcinoma�of�the�skin.�Patient�is�on�chronic�immunosuppression�with�CellCept�500�mg�BID,�prednisone�5�mg�MWF,
cyclosporine�50�mg�twice�daily.��Previous�lymph�node�biopsy�2022�of�a�left�supraclavicular�mass�positive�for�a�3.2�cm�focus�of�squamous�cell�carcinoma�of�a�lymph�node�with�extranodal�extension.�Following�surgery,�patient�was
given�the�option�of�additional�surgery,�radiation,�or�observation�by�oncologist.�Patient�underwent�staging�PET/CT�scan�in�01/2022 that�was�negative�for�evidence�of�metastatic�disease�elsewhere. He was noted to have a palpable left axillary mass
in July 2023 and elected not to pursue a biopsy. Now seen in the emergency room with a sensation of shortness of breath and feeling chilled.
Past-Medical/Surgical History
Past Medical History
Metastatic squamous cell carcinoma of the skinhypertension, ulcerative colitis, diverticulosis, liver transplantation- cryptogenic, atrial fibrillation, HLD, DM, gout, hypothyroidism, CKD
Past Surgical History
hernia repair, liver transplant
Social History
Tobacco: Non-smoker
Alcohol: None
Drug: None
Family History
Family History: Not pertinent
Patient Medication
�Medication �Instructions �Recorded �Confirmed �Last Taken �Type
metoprolol tartrate 25 mg tablet 25 mg PO BID Blood pressure 05/16/13 04/13/24 04/12/24 History
cyclosporine modified 50 mg capsule 50 mg PO BID anti-rejection 07/05/18 04/13/24 04/12/24 History
folic acid 1 mg tablet 1 mg PO DAILY Supplement 07/05/18 04/13/24 04/12/24 History
prednisone 5 mg tablet 5 mg PO MOWEFR Anti-rejection 07/05/18 04/13/24 04/12/24 History
apixaban 2.5 mg tablet (Eliquis) 2.5 mg PO BID ##0 01/16/20 04/13/24 04/12/24 Rx
amlodipine 10 mg tablet (Norvasc) 10 mg PO DAILY 04/13/24 04/13/24 04/12/24 History
calcitriol 0.25 mcg capsule 0.25 mcg PO DAILY 04/13/24 04/13/24 04/12/24 History
dutasteride 0.5 mg capsule 0.5 mg PO HS 04/13/24 04/13/24 04/12/24 History
insulin lispro protamine-lispro 18 unit SQ BID 04/13/24 04/13/24 04/12/24 History
100 unit/mL (75-25) subcutaneous
pen (Humalog Mix 75-25 KwikPen)
levothyroxine 100 mcg tablet 100 mcg PO DAILY 04/13/24 04/13/24 04/12/24 History
(Synthroid)
mycophenolate mofetil 500 mg tablet 500 mg PO BID 04/13/24 04/13/24 04/12/24 History
pravastatin 40 mg tablet 40 mg PO QPM 04/13/24 04/13/24 04/12/24 History
sulfasalazine 500 mg tablet 1,000 mg PO QPM 04/13/24 04/13/24 04/12/24 History
sulfasalazine 500 mg tablet 500 mg PO DAILY 04/13/24 04/13/24 04/12/24 History
vitamins A,C,Y-kcez-ieamqr 2,148 1 tab PO DAILY 04/13/24 04/13/24 Unknown History
mcg-113 mg-45 mg-17.4 mg tablet
(PreserVision AREDS)
Review of Systems
-
12 point review of systems fails elicit additional complaints other than those reviewed in HPI
Physical Exam
-
General: Well Developed and Well Nourished
HEENT: Moist Mucous Membranes; Negative Jaundice
Cardiology: Normal Sinus Rhythm and Murmur
Pulmonary: No Decreased Tactile Fremitus; Negative Rales
GI: Soft; Negative Spleenomegaly
Musculoskeletal: No Clubbing and No Edema
Skin: Warm, Dry and Other ( squamous cell in the arm)
Hematologic / Lymphatic: Lymphadenopathy ( 3 cm palpable left axillary lymph node)
Psych: Calm and Intact Judgement/Insight
Labs
Lab Results
WBC 8.5 10^3/uL (4.8-10.8) 04/13/24 08:35
RBC 2.98 10^6/uL (4.70-6.10) L 04/13/24 08:35
Hgb 9.1 g/dL (13.0-18.0) L 04/13/24 08:35
Hct 29.4 % (39.0-52.0) L 04/13/24 08:35
MCV 98.7 fL (80.0-94.0) H 04/13/24 08:35
MCH 30.5 pg (27.0-31.0) 04/13/24 08:35
MCHC 31.0 g/dL (33.0-37.0) L 04/13/24 08:35
RDW 14.2 % (11.5-14.5) 04/13/24 08:35
Plt Count 192 10^3/uL (130-400) 04/13/24 08:35
MPV 8.6 fL (7.4-10.4) 04/13/24 08:35
Abs Immat Gran (auto) 0.0 10^3/uL (0-0.05) 04/13/24 08:35
Absolute Neuts (auto) 5.4 10^3/uL (1.4-6.5) 04/13/24 08:35
Absolute Lymphs (auto) 1.9 10^3/uL (1.2-3.4) 04/13/24 08:35
Absolute Monos (auto) 1.0 10^3/uL (0.1-0.6) H 04/13/24 08:35
Absolute Eos (auto) 0.1 10^3/uL (0-0.7) 04/13/24 08:35
Absolute Basos (auto) 0.0 10^3/uL (0-0.2) 04/13/24 08:35
Immature Gran % 0.4 % (0-0.5) 04/13/24 08:35
Neutrophils % 63.9 % (42.2-75.2) 04/13/24 08:35
Lymphocytes % 22.8 % (20.5-51.1) 04/13/24 08:35
Monocytes % 11.9 % (1.7-9.3) H 04/13/24 08:35
Eosinophils % 0.6 % (0-6) 04/13/24 08:35
Basophils % 0.4 % (0-2) 04/13/24 08:35
Creatinine 2.0 mg/dL (0.7-1.3) H 04/13/24 08:35
Vital Signs
Vital Signs
Temp Pulse Resp BP Pulse Ox
98.2 F 88 25 147/93 96
04/13/24 12:00 04/13/24 10:15 04/13/24 10:15 04/13/24 10:00 04/13/24 08:24
--- NOTE | 2024-04-13 15:54 | PTCARENOTE ---
Received patient from ED via stretcher. AAOx3, ambulated to bed with assistance. Assessed and oriented to room. environmental monitoring technician reading Afib. Call watkins in close reach.
[2024-04-13] MEDS: LASIX 40 MG IV (16:26)
[2024-04-13] MEDS: NOVOLOG FLEXPEN-MODERATE RESISTANCE SC (16:33)
[2024-04-13 16:43] LABS: Glucose - Point of Care 85 mg/dl (70-99)
[2024-04-13] MEDS: NOVOLOG MIX 70/30 FLEXPEN 9 UNITS SC (16:43)
[2024-04-13] MEDS: AZULFIDINE 1000 MG PO (17:12)
[2024-04-13] MEDS: PRAVACHOL 40 MG PO (17:12)
[2024-04-13] MEDS: SandIMMUNE 50 MG PO (20:19)
[2024-04-13] MEDS: LOPRESSOR 25 MG PO (20:20)
[2024-04-13] MEDS: CELLCEPT 500 MG PO (20:21)
[2024-04-13] MEDS: PROSCAR 5 MG PO (20:24)
[2024-04-13 21:43] LABS: Glucose - Point of Care 84 mg/dl (70-99)
[2024-04-14] VITALS (8 sets, daily range): BP systolic 79–156; BP diastolic 67–87; BMI 27.0
[2024-04-14] MEDS: SYNTHROID 100 MCG PO (05:27)
[2024-04-14 06:32] LABS: % Basophils 0.5 % (0-2); % Eosinophils 1.2 % (0-6); % Immature Granulocytes 0.6 % (0-0.5); % Lymphocytes 34.1 % (20.5-51.1); % Monocytes 13.8 % (1.7-9.3); % Neutrophils 49.8 % (42.2-75.2); Absolute Eosinophils 0.1 10^3/uL (0-0.7); Absolute Immature Granulocytes 0.1 10^3/uL (0-0.05); Absolute Lymphocytes 2.7 10^3/uL (1.2-3.4); Absolute Monocytes 1.1 10^3/uL (0.1-0.6); Absolute Neutrophils 3.9 10^3/uL (1.4-6.5); Hematocrit 24.5 % (39.0-52.0); Hemoglobin 7.7 g/dL (13.0-18.0); Mean Corp Hgb Conc. 31.4 g/dL (33.0-37.0); Mean Corpuscular Hgb 29.8 pg (27.0-31.0); Mean Platelet Volume 8.8 fL (7.4-10.4); Nucleated Red Blood Cells % 0 % (-); Platelet Count 176 10^3/uL (130-400); Red Blood Cell Count 2.58 10^6/uL (4.70-6.10); Red Cell Dist. Width 14.1 % (11.5-14.5); White Blood Cell Count 7.8 10^3/uL (4.8-10.8)
[2024-04-14 07:07] LABS: ALT (SGPT) < 10 U/L (0-50); AST (SGOT) 20 U/L (17-59); Albumin 3.2 g/dl (3.5-5.0); Alkaline Phosphatase 171 U/L (38-126); Blood Urea Nitrogen 60 mg/dl (9-20); Calcium 8.9 mg/dl (8.4-10.2); Carbon Dioxide 21 mmol/L (22-30); Chloride 106 mmol/L (98-107); Estimated Creatinine Clearance 27 ml/min; Glucose 75 mg/dl (70-99); Magnesium 1.6 mg/dl (1.6-2.3); Potassium 5.3 mmol/L (3.5-5.1); Sodium 136 mmol/L (135-145); Total Bilirubin 0.7 mg/dl (0.2-1.3); Total Protein 6.1 g/dl (6.3-8.2); eGFR 31.04
[2024-04-14 07:10] LABS: Glucose - Point of Care 75 mg/dl (70-99)
[2024-04-14 07:58] LABS: Reticulocyte Count 2.6 % (0.4-2.8)
[2024-04-14 08:19] LABS: Iron 418 ug/dl (49-181); LDH 154 U/L (120-246)
--- NOTE | 2024-04-14 08:26 | W.PN.CD ---
Today's Communication / Plan
-
Switch to p.o. Lasix 40 mg daily
Please obtain ambulatory pulse ox
If he feels okay walking around and is not hypoxic, safe for discharge from a cardiovascular standpoint.
Our office will schedule him for follow-up.
Impression / Plan
-
Acute HFpEF:
-recent echo as below
-Switch to p.o. Lasix 40 mg daily today
-CHF education, sodium/fluid restriction
, moderate:
-monitor over time by echo
-volume plan as above
Permanent afib:
-continue metoprolol and Eliquis
CAD with hx CABG:
-stable without CP
-continue Eliquis, statin, BB
HTN:
-Continue home medications
Data:
Echo 03/01/24: EF 55%, Stage II diastolic dysfunction, normal right ventricular size with mildly depressed systolic function, severe left atrial dilation. Mild mitral regurgitation. Moderate aortic stenosis (peak/mean 35/18, YASSINE 1.2 cm2) and
mild/moderate regurgitation. Mild to moderate tricuspid regurgitation. Mildly dilated aortic root and ascending aorta (SOV 3.8 cm, Asc Ao 4.3 cm). The IVC is of normal size but does not collapse. Right atrial pressure estimated at 8 mmHg. Mild
pulmonary hypertension. PASP estimated at 41 mmHg.
Subjective: Patient breathing has improved. He has been taking oxygen on and off and feels okay without it. He is laying completely flat this morning.
Physical Exam
Vital Signs/Labs
Vital Signs
Temp Pulse Resp BP Pulse Ox
98.4 F 70 20 139/67 100
04/14/24 07:15 04/14/24 07:15 04/14/24 07:15 04/14/24 07:15 04/14/24 07:15
04/13/24 04/14/24 04/15/24
06:59 06:59 06:59
Actual Weight 80.456 kg
04/14/24 05:31
04/14/24 05:31
Magnesium 1.6 mg/dl (1.6-2.3) 04/14/24 05:31
TSH 18.30 uIU/ml (0.47-4.68) H 04/13/24 08:35
04/13/24
08:35
Zbe-V-Eamjrybzdpj Pept 7830
LAB Results
04/13/24
08:35
Troponin I 0.026
Physical Exam
Constitutional: No acute distress and Comfortable
Cardiovascular: Pedal edema is absent, Rhythm/rate is irregular and Systolic murmur present
Respiratory: Respiratory effort normal and Crackles Present
Neuro/Psych: AO x 3
Data Reviewed
-
Date of Service: April 14, 2024
Medical Decision Making: Reviewed Test Results, Independent Historian Assessment, Test Interpretation and Review of Case with other Provider
EKG: Tracing Personally Visualized and interpreted
Echo: Report Reviewed by me
X-Ray/CT/US/MRI/NUC/PET: Image Personally Visualized and interpreted and Report Reviewed by me
Labs: Labs Reviewed by me
[2024-04-14 08:28] LABS: Percent Saturation 153 % (20-50); Total Iron Binding Capacity 273 ug/dl (261-462)
[2024-04-14] MEDS: MAGNESIUM SULFATE 50 IV (08:36)
[2024-04-14] MEDS: NOVOLOG FLEXPEN-MODERATE RESISTANCE SC ×2 (08:36→12:06)
[2024-04-14] MEDS: NORVASC 10 MG PO (08:37)
[2024-04-14] MEDS: FOLVITE 1 MG PO (08:37)
[2024-04-14] MEDS: ROCALTROL 0.25 MCG PO (08:37)
[2024-04-14] MEDS: SandIMMUNE 50 MG PO ×2 (08:37→20:35)
[2024-04-14] MEDS: LOPRESSOR 25 MG PO ×2 (08:38→20:35)
[2024-04-14] MEDS: AZULFIDINE 500 MG PO (08:38)
[2024-04-14] MEDS: DELTASONE 5 MG PO (08:45)
[2024-04-14] MEDS: LASIX 40 MG PO (08:45)
[2024-04-14] MEDS: CELLCEPT 500 MG PO ×2 (08:53→20:35)
[2024-04-14 09:27] LABS: Folate > 20.0 ng/ml (2.76-20); Vitamin B12 971 pg/ml (239-931)
[2024-04-14] MEDS: NOVOLOG MIX 70/30 FLEXPEN 15 UNITS SC (09:28)
--- NOTE | 2024-04-14 10:59 | W.PN.HOSP.TC ---
Today's Communication/Plan
-
daily Lasix
follow CBC
check stool for occult blood, hold Eliquis, might need Epo, but patient with [facility] for paracentesis and L lymph node biopsy
Home O2 assessment
Assessment / Plan
Assessment / Plan
Anticipated Discharge: > 48 hours
Subjective/Interval History
-
Date of Service: April 14, 2024
Objective Data
-
Labs:
Laboratory Results
04/14/24
05:31
WBC 7.8
Hgb 7.7 L
Hct 24.5 L
Plt Count 176
Sodium 136
Potassium 5.3 H
Chloride 106
Carbon Dioxide 21 L
BUN 60 H
Creatinine 2.1 H
Glucose 75
Calcium 8.9
Total Bilirubin 0.7
AST 20
ALT < 10
Alkaline Phosphatase 171 H
Vital Signs:
Vital Signs
Temp Pulse Resp BP Pulse Ox
98.4 F 70 20 139/67 95
04/14/24 07:15 04/14/24 08:37 04/14/24 07:15 04/14/24 08:37 04/14/24 09:00
I&O
04/13/24 04/14/24 04/15/24
06:59 06:59 06:59
Intake Total 1680 / 1680 480 / 480
Output Total 800 / 800 325 / 325
Balance 880 / 880 155 / 155
Review of Systems
-
History Source: Patient
All other systems: Reviewed and negative
Physical Exam
-
General: No Apparent Distress
HEENT: Normocephalic
Respiratory: Clear to Auscultation
GI: Soft, Nontender and Nondistended
Musculoskeletal: No Clubbing, No Cyanosis and No Edema
Neuro: Awake, Alert, Oriented and AO x 3
Psych: Calm
[2024-04-14 11:00] LABS: Glycohemoglobin (HgbA1c) 6.7 % (4.0-5.6)
[2024-04-14 12:06] LABS: Glucose - Point of Care 96 mg/dl (70-99)
--- NOTE | 2024-04-14 15:14 | CM ---
Alert awake oriented patient who lives with his Alyssa who lives in a 2 story home with 3 step to enter and 13 steps to bed and bathroom. He is independent in driving and in all activities of daily living.He was offered VN he declined need.His
will drive him home.
No VN hx / No SNF history
Pharmacy [facility]
PCP DR Anthony
PLAN Home Declined VN
[2024-04-14 16:50] LABS: Body Fluid Mononuclear 90.3 %; Body Fluid Polymorphonuclear 9.7 %; Body Fluid WBC 694 /CUMM
[2024-04-14 16:52] LABS: Body Fluid Second Tech EYM
[2024-04-14 16:53] LABS: Glucose - Point of Care 192 mg/dl (70-99)
[2024-04-14] MEDS: PRAVACHOL 40 MG PO (17:14)
[2024-04-14] MEDS: NOVOLOG FLEXPEN-MODERATE RESISTANCE 1 UNITS SC (17:14)
[2024-04-14] MEDS: NOVOLOG MIX 70/30 FLEXPEN 9 UNITS SC (17:14)
[2024-04-14] MEDS: AZULFIDINE 1000 MG PO (17:14)
[2024-04-14 17:30] LABS: Body Fluid Albumin 1.9 g/dl; Body Fluid Protein 3.8 g/dl
--- NOTE | 2024-04-14 17:43 | PTCARENOTE ---
Addendum entered by Frances Ford RN 04/15/24 13:41:
s/p Paracentesis
Original Note:
pt back from [facility] s/p R thoracentesis and left axillary Lymph node Biopsy. pt is AAO*3, Vss, room air. denies any pain. at the bedside updated. plan of care ongoing.
[2024-04-14] MEDS: PROSCAR 5 MG PO (20:35)
[2024-04-14 21:27] LABS: Glucose - Point of Care 249 mg/dl (70-99)
[2024-04-15 03:56] VITALS: BP 136/82
[2024-04-15] MEDS: SYNTHROID 125 MCG PO (05:19)
[2024-04-15 05:25] VITALS: BMI 26.2
[2024-04-15 06:25] LABS: % Basophils 0.3 % (0-2); % Eosinophils 1.4 % (0-6); % Immature Granulocytes 0.7 % (0-0.5); % Monocytes 14.4 % (1.7-9.3); % Neutrophils 55.2 % (42.2-75.2); Absolute Eosinophils 0.1 10^3/uL (0-0.7); Absolute Immature Granulocytes 0.1 10^3/uL (0-0.05); Absolute Lymphocytes 2.5 10^3/uL (1.2-3.4); Absolute Monocytes 1.3 10^3/uL (0.1-0.6); Absolute Neutrophils 4.9 10^3/uL (1.4-6.5); Hematocrit 24.3 % (39.0-52.0); Hemoglobin 7.8 g/dL (13.0-18.0); Mean Corp Hgb Conc. 32.1 g/dL (33.0-37.0); Mean Corpuscular Hgb 30.4 pg (27.0-31.0); Mean Corpuscular Volume 94.6 fL (80.0-94.0); Mean Platelet Volume 9.1 fL (7.4-10.4); Nucleated Red Blood Cells % 0 % (-); Platelet Count 195 10^3/uL (130-400); Red Blood Cell Count 2.57 10^6/uL (4.70-6.10); White Blood Cell Count 8.9 10^3/uL (4.8-10.8)
[2024-04-15 06:44] LABS: ALT (SGPT) 11 U/L (0-50); AST (SGOT) 24 U/L (17-59); Albumin 3.5 g/dl (3.5-5.0); Alkaline Phosphatase 190 U/L (38-126); Blood Urea Nitrogen 70 mg/dl (9-20); Carbon Dioxide 22 mmol/L (22-30); Chloride 102 mmol/L (98-107); Estimated Creatinine Clearance 24 ml/min; Glucose 82 mg/dl (70-99); Potassium 5.2 mmol/L (3.5-5.1); Sodium 135 mmol/L (135-145); Total Bilirubin 0.7 mg/dl (0.2-1.3); Total Protein 6.4 g/dl (6.3-8.2); eGFR 27.83
[2024-04-15 07:15] VITALS: BP 138/63
[2024-04-15 07:29] LABS: Glucose - Point of Care 104 mg/dl (70-99)
[2024-04-15] MEDS: NOVOLOG FLEXPEN-MODERATE RESISTANCE SC (08:19)
[2024-04-15] MEDS: AZULFIDINE 500 MG PO (08:22)
[2024-04-15] MEDS: LASIX 40 MG PO (08:22)
[2024-04-15] MEDS: ROCALTROL 0.25 MCG PO (08:22)
[2024-04-15] MEDS: CELLCEPT 500 MG PO (08:22)
[2024-04-15] MEDS: SandIMMUNE 50 MG PO (08:22)
[2024-04-15] MEDS: NORVASC 10 MG PO (08:22)
[2024-04-15] MEDS: FOLVITE 1 MG PO (08:23)
[2024-04-15] MEDS: NOVOLOG MIX 70/30 FLEXPEN 15 UNITS SC (08:23)
[2024-04-15] MEDS: LOPRESSOR 25 MG PO (08:23)
--- NOTE | 2024-04-15 10:09 | W.PN.HOSP.TC ---
Today's Communication/Plan
-
dc
Assessment / Plan
Assessment / Plan
83yo M with PMHX of liver transplant, diverticulosis UC, HTN, Afib, CAD s/p CABG, HTN, HLD, DM, gout, hypothyroidism, CKD, squamous cell cancer of the skin, [facility], previously declined L axillary lymph nodule biopsy came with
SOB on excertion, found HFpEF. ALso abdominal asites that found transudative fluid with high protein content concered for CHF-related and had L axillary lymph node biopsy on 04/14/24, results of which he can follow with Oncology as outpatient.
Cardiology recommended daily Lasix PO and will see patient in the clinic. Cr remained stable as well as Hgb. Patient was able to ambularte without hypoxia after short IV diuresis. Mediclaly stable to d/c home as was able to move in the room and he
is sure that he will be able to function at home without assistance.
A/P
#Acute on chronic HFpEF
#Moderate
#Permanent Afib
#CAD s/p CABG stable
#Essential HTN
s/p diuresis and cardiology eval
cont home meds
#Anemia of chronic diasease with ELIZABETH
scheduled for iron infusions and Ep[o with Oncology
Hgb stable
FOBT not done, but stool reported brown
#Enlarged axillary lymph node
s/p incisional biopsy, pending path - folow with Oncologist
#Ascites
2/2 CHF
Path pending - follow with Oncologist
Gram stain neg for organism
<100 polymorphonuclear cells
no concern for infection
#Abdominal hernia
advised outpatient follow up
#Chronic alk. phos elevation
#Hx of liver transplant
cont antirejection drugs
follow LFT
Advise to reestablish with event mgr - lost follow up few years ago with [facility]
#DM type 2 with nephropathy
Insulin, DM diet, accuchecks and sliding scale
#CKD stage 3b
#HLD
#Essential HTN
#Hx of DVT
#UC
#Hypothyroidism
#Essential HTN
cont home meds
Increased Synthroid, repeat TFT in 2-3 weeks
DVT ppx on eliauis
Full code
I have spent at least 37min reviewing chart, test results, communication with consultantds and direct patient care
Anticipated Discharge: Today
Subjective/Interval History
-
Date of Service: April 15, 2024
Objective Data
-
Labs:
Laboratory Results
04/15/24
04:52
WBC 8.9
Hgb 7.8 L
Hct 24.3 L
Plt Count 195
Sodium 135
Potassium 5.2 H
Chloride 102
Carbon Dioxide 22
BUN 70 H
Creatinine 2.3 H
Glucose 82
Calcium 9.0
Total Bilirubin 0.7
AST 24
ALT 11
Alkaline Phosphatase 190 H
Vital Signs:
Vital Signs
Temp Pulse Resp BP Pulse Ox
98.1 F 82 16 138/63 96
04/15/24 07:15 04/15/24 08:22 04/15/24 07:15 04/15/24 08:22 04/15/24 07:15
I&O
04/14/24 04/15/24 04/16/24
06:59 06:59 07:59
Intake Total 1680 / 1680 1670 / 1670
Output Total 800 / 800 1310 / 1310
Balance 880 / 880 360 / 360
Review of Systems
-
History Source: Patient
All other systems: Reviewed and negative
Physical Exam
-
General: Well Developed and No Apparent Distress
HEENT: Normocephalic
Respiratory: Clear to Auscultation
GI: Soft, Nontender and Nondistended
Musculoskeletal: No Clubbing
Neuro: Awake, Alert, Oriented and AO x 3
Psych: Calm
--- NOTE | 2024-04-15 10:28 | W.DCSUMMARY ---
Discharge Summary
Discharge Data
Date of Admission: 04/13/24
Date of Discharge: 04/15/24
-
Pending Results: Yes
Additional Pending Results:
biopsy results
Hospital Course
83yo M with PMHX of liver transplant, diverticulosis UC, HTN, Afib, CAD s/p CABG, HTN, HLD, DM, gout, hypothyroidism, CKD, squamous cell cancer of the skin, [facility] declined L axillary lymph nodule biopsy came with
SOB on excertion, found HFpEF. ALso abdominal asites that found transudative fluid with high protein content concered for CHF-related and had L axillary lymph node biopsy on 04/14/24, results of which he can follow with Oncology as outpatient.
Cardiology recommended daily Lasix PO and will see patient in the clinic. Cr remained stable as well as Hgb. Patient was able to ambularte without hypoxia after short IV diuresis. Mediclaly stable to d/c home as was able to move in the room and he
is sure that he will be able to function at home without assistance.
Patient will follow up with PCP to repeat TFTsince synthroid increaed. Insulin dose decreased to 15units BID to avoid hypoglycemia.
I have spent at least 37min reviewing chart, test results, communication with consultantds and direct patient care
Patient was managed for
#Acute on chronic HFpEF
#Moderate
#Permanent Afib
#CAD s/p CABG stable
#Essential HTN
#Anemia of chronic diasease with ELIZABETH
#Enlarged axillary lymph node
#Ascites
#Abdominal hernia
#Chronic alk. phos elevation
#Hx of liver transplant
#DM type 2 with nephropathy
#CKD stage 3b
#HLD
#Essential HTN
#Hx of DVT
#UC
#Hypothyroidism
#Essential HTN
Discharge Plan
-
Patient Disposition: Home (Routine Discharge)
Discharge Diagnosis/Procedures: CHF
Diet: Low Sodium and Diabetic, Carb Controlled
Activity: As tolerated
Activity Restrictions/Additional Instructions:
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
Instructions: *CBC Heart Failure Instructions
Referrals:
Ronald Diallo, DO [Active] - in less than 1 week (for results of biopsy)
Estefania Webb CRNP [Specified Professional Personl] - 05/12/24 1:40 pm
Juanjose Anthony MD [Family Provider] - in less than 1 week (referral to General surgery for hernia repair and schedule repeated thyroid function test as Synthroid dose increased)
Prescriptions:
New
furosemide 40 mg Tablet
40 mg PO DAILY Qty: 30 0RF
levothyroxine 100 mcg Tablet
125 mcg PO DAILY@0600 Qty: 30 0RF
Continued
metoprolol tartrate 25 MG tablet
25 mg PO BID
folic acid 1 MG tablet
1 mg PO DAILY
cyclosporine modified 50 MG capsule
50 mg PO BID
prednisone 5 MG tablet
5 mg PO MOWEFR
Eliquis 2.5 MG tablet
2.5 mg PO BID Qty: 0 0RF
pravastatin 40 mg Tablet
40 mg PO QPM
calcitriol 0.25 mcg Capsule
0.25 mcg PO DAILY
dutasteride 0.5 mg Capsule
0.5 mg PO HS
PreserVision AREDS 2,148 mcg-113 mg-45 mg-17.4mg Tablet
1 tab PO DAILY
sulfasalazine 500 mg Tablet
500 mg PO DAILY
mycophenolate mofetil 500 mg Tablet
500 mg PO BID
amlodipine [Norvasc] 10 mg Tablet
10 mg PO DAILY
sulfasalazine 500 MG tablet
1,000 mg PO QPM
Changed
insulin lispro protamin-lispro [Humalog Mix 75-25 KwikPen] 100 UNIT/ML insulin pen
15 unit SQ BID Qty: 0 0RF
Discontinued
levothyroxine [Synthroid] 100 mcg Tablet
100 mcg PO DAILY
Discharge Orders:
Discharge Patient (As Directed); Ordered 04/15/24
Ordered By: Ector Flannery
Discharge Date and Time
Print Language: LAO
[2024-04-15 11:15] VITALS: BP 119/63
--- NOTE | 2024-04-15 12:16 | CM ---
Pt for dc to home. will provide transportation home.
Pt denies needs at dc and signed IMM.
[2024-04-15 12:46] LABS: Glucose - Point of Care 174 mg/dl (70-99)
[2024-04-15] MEDS: NOVOLOG FLEXPEN-MODERATE RESISTANCE 1 UNITS SC (13:03)
--- NOTE | 2024-04-17 11:15 | W.HF.CON ---
Heart Failure
- LV Function
Left ventricular function study result: LV Ejection fraction >/= 50% (ECHO 03/01/24)
Ejection Fraction Percentage: 55
- ARNI
Patient already on ARNI: No
Heart Failure ARNI Not Indicated: LV Ejection Fraction >/= 40%
- ACEI/ARB
Patient already on ACEI/ARB: No
Heart Failure ACEI/ARB Not Indicated: LV Ejection Fraction > 40%
- Beta Tino
Patient already on Evidence Based Beta Tino: Yes
- Mineralocorticord Receptor Antagonist
Patient already on MRA: No
Heart Failure MRA Not Indicated: LV Ejection Fraction > 40%
- SGLT-2 Inhibitor
Patient already on SGLT-2 Inhibitor: Yes
- Afib Anticoagulation
Patient already on Anticoagulation for Afib: Yes
- NYHA CHF Classification
NYHA CHF Classification Level: Class III - Symptoms w/ min exertion, interferes w/ nml daily activity
- ACC/AHA Stage
ACC/AHA Stage: Stage C: Symptomatic Heart Failure
== END 2024-04-15 14:36 | disposition home or self-care (01) | DRG 264 ==
LOC: 4 EAST ACU 12:05
PROVIDERS: Radiology Vascular & Interventional Radiology; ADMITTING PHYSICIAN Internal Medicine; CONSULT PHYSICIAN Internal Medicine; CONSULT PHYSICIAN Internal Medicine Hematology & Oncology; EMERGENCY PHYSICIAN Emergency Medicine; FAMILY PHYSICIAN Internal Medicine
PROC: 07B63ZX Excision of Left Axillary Lymphatic, Percutaneous Approach, Diagnostic (ICD-10-PCS; 2024-04-14)
PROC: 0W9G3ZX Drainage of Peritoneal Cavity, Percutaneous Approach, Diagnostic (ICD-10-PCS; 2024-04-14)
DX: I13.0 Hypertensive heart and chronic kidney disease with heart failure and stage 1 through stage 4 chronic kidney disease, or unspecified chronic kidney disease (principal); I50.33 Acute on chronic diastolic (congestive) heart failure; I48.21 Permanent atrial fibrillation; R18.8 Other ascites; Z94.4 Liver transplant status; C77.3 Secondary and unspecified malignant neoplasm of axilla and upper limb lymph nodes; N18.32 Chronic kidney disease, stage 3b; E11.22 Type 2 diabetes mellitus with diabetic chronic kidney disease; E03.9 Hypothyroidism, unspecified; E78.00 Pure hypercholesterolemia, unspecified; I25.10 Atherosclerotic heart disease of native coronary artery without angina pectoris; Z79.4 Long term (current) use of insulin; Z95.1 Presence of aortocoronary bypass graft; Z86.718 Personal history of other venous thrombosis and embolism; Z87.891 Personal history of nicotine dependence; Z85.828 Personal history of other malignant neoplasm of skin
CPT/HCPCS: 88305; 38505; 49083; 71046; 71250; 74176; 76942; 80053; 82042; 82607; 82728; 82746; 82962; 83036; 83540; 83550; 83615; 83735; 83880; 84157; 84443; 84484; 85025; 85045; 87015; 87070; 87205; 88112; 88333; 88334; 89051; 93005; 96374; 99285

== ENCOUNTER → 2024-04-19 09:40 | Outpatient (REF) | payer MEDICARE, OTHER, SELFPAY ==
[2024-04-19 10:36] LABS: % Basophils 0.6 % (0-2); % Eosinophils 1.5 % (0-6); % Immature Granulocytes 1.4 % (0-0.5); % Lymphocytes 31.7 % (20.5-51.1); % Monocytes 12.2 % (1.7-9.3); % Neutrophils 52.6 % (42.2-75.2); Absolute Basophils 0.1 10^3/uL (0-0.2); Absolute Eosinophils 0.1 10^3/uL (0-0.7); Absolute Immature Granulocytes 0.1 10^3/uL (0-0.05); Absolute Lymphocytes 2.7 10^3/uL (1.2-3.4); Absolute Monocytes 1.1 10^3/uL (0.1-0.6); Absolute Neutrophils 4.5 10^3/uL (1.4-6.5); Hematocrit 27.5 % (39.0-52.0); Hemoglobin 8.6 g/dL (13.0-18.0); Mean Corp Hgb Conc. 31.3 g/dL (33.0-37.0); Mean Corpuscular Hgb 30.1 pg (27.0-31.0); Mean Corpuscular Volume 96.2 fL (80.0-94.0); Mean Platelet Volume 8.9 fL (7.4-10.4); Nucleated Red Blood Cells % 0 % (-); Platelet Count 182 10^3/uL (130-400); Red Blood Cell Count 2.86 10^6/uL (4.70-6.10); Red Cell Dist. Width 14.4 % (11.5-14.5); White Blood Cell Count 8.6 10^3/uL (4.8-10.8)
[2024-04-19 11:07] LABS: ALT (SGPT) 11 U/L (0-50); AST (SGOT) 20 U/L (17-59); Alkaline Phosphatase 182 U/L (38-126); Blood Urea Nitrogen 63 mg/dl (9-20); Calcium 9.3 mg/dl (8.4-10.2); Carbon Dioxide 27 mmol/L (22-30); Chloride 99 mmol/L (98-107); Direct Bilirubin 0.6 mg/dl (0.0-0.4); Glucose 135 mg/dl (70-99); Iron 89 ug/dl (49-181); Potassium 4.5 mmol/L (3.5-5.1); Sodium 139 mmol/L (135-145); Total Bilirubin 0.8 mg/dl (0.2-1.3); Total Protein 7.1 g/dl (6.3-8.2); eGFR 29.36
[2024-04-19 11:17] LABS: Percent Saturation 30 % (20-50); Total Iron Binding Capacity 294 ug/dl (261-462)
[2024-04-19 11:57] LABS: Free T4 1.09 ng/dl (0.78-2.19)
== END ==
LOC: REG 09:40
PROVIDERS: ATTENDING PHYSICIAN Internal Medicine Hematology & Oncology; FAMILY PHYSICIAN Internal Medicine; OTHER PHYSICIAN Internal Medicine Gastroenterology
DX: E11.9 Type 2 diabetes mellitus without complications (principal); E03.9 Hypothyroidism, unspecified; C44.82 Squamous cell carcinoma of overlapping sites of skin; D63.1 Anemia in chronic kidney disease; K51.90 Ulcerative colitis, unspecified, without complications
CPT/HCPCS: 36415; 80053; 82248; 82728; 83540; 83550; 84439; 84443; 85025; 86140

== ENCOUNTER → 2024-05-08 10:17 | Outpatient (REF) | payer MEDICARE, OTHER, SELFPAY ==
[2024-05-08 10:26] LABS: % Basophils 0.4 % (0-2); % Eosinophils 1.6 % (0-6); % Immature Granulocytes 0.3 % (0-0.5); % Lymphocytes 35.6 % (20.5-51.1); % Monocytes 10.9 % (1.7-9.3); % Neutrophils 51.2 % (42.2-75.2); Absolute Eosinophils 0.1 10^3/uL (0-0.7); Absolute Lymphocytes 2.8 10^3/uL (1.2-3.4); Absolute Monocytes 0.8 10^3/uL (0.1-0.6); Hematocrit 33.9 % (39.0-52.0); Hemoglobin 10.7 g/dL (13.0-18.0); Mean Corp Hgb Conc. 31.6 g/dL (33.0-37.0); Mean Corpuscular Hgb 30.5 pg (27.0-31.0); Mean Corpuscular Volume 96.6 fL (80.0-94.0); Mean Platelet Volume 8.5 fL (7.4-10.4); Platelet Count 152 10^3/uL (130-400); Red Blood Cell Count 3.51 10^6/uL (4.70-6.10); Red Cell Dist. Width 14.2 % (11.5-14.5); White Blood Cell Count 7.7 10^3/uL (4.8-10.8)
== END ==
LOC: OIDL 10:17
PROVIDERS: ATTENDING PHYSICIAN Internal Medicine Hematology & Oncology
DX: C44.82 Squamous cell carcinoma of overlapping sites of skin (principal); D63.1 Anemia in chronic kidney disease
CPT/HCPCS: 85025

== ENCOUNTER → 2024-05-22 09:49 | Outpatient (REF) | payer MEDICARE, OTHER, SELFPAY ==
[2024-05-22 10:05] LABS: % Basophils 0.4 % (0-2); % Eosinophils 1.8 % (0-6); % Immature Granulocytes 0.1 % (0-0.5); % Lymphocytes 37.3 % (20.5-51.1); % Monocytes 9.7 % (1.7-9.3); % Neutrophils 50.7 % (42.2-75.2); Absolute Eosinophils 0.1 10^3/uL (0-0.7); Absolute Lymphocytes 2.5 10^3/uL (1.2-3.4); Absolute Monocytes 0.7 10^3/uL (0.1-0.6); Absolute Neutrophils 3.5 10^3/uL (1.4-6.5); Hematocrit 35.5 % (39.0-52.0); Hemoglobin 11.2 g/dL (13.0-18.0); Mean Corp Hgb Conc. 31.5 g/dL (33.0-37.0); Mean Corpuscular Hgb 30.6 pg (27.0-31.0); Mean Platelet Volume 8.4 fL (7.4-10.4); Platelet Count 124 10^3/uL (130-400); Red Blood Cell Count 3.66 10^6/uL (4.70-6.10); Red Cell Dist. Width 13.6 % (11.5-14.5); White Blood Cell Count 6.8 10^3/uL (4.8-10.8)
[2024-05-22 11:36] LABS: Iron 108 ug/dl (49-181)
[2024-05-22 11:49] LABS: Percent Saturation 38 % (20-50); Total Iron Binding Capacity 280 ug/dl (261-462)
[2024-05-22 11:59] LABS: Free T4 0.97 ng/dl (0.78-2.19)
[2024-05-22 15:41] LABS: Nucleated Red Blood Cells % 0 % (-)
[2024-05-23 08:34] LABS: Glycohemoglobin (HgbA1c) 6.8 % (4.0-5.6)
== END ==
LOC: OIDL 09:49
PROVIDERS: ATTENDING PHYSICIAN Internal Medicine Hematology & Oncology; FAMILY PHYSICIAN Internal Medicine
DX: C44.82 Squamous cell carcinoma of overlapping sites of skin (principal); D63.1 Anemia in chronic kidney disease; E03.9 Hypothyroidism, unspecified; E11.9 Type 2 diabetes mellitus without complications
CPT/HCPCS: 82728; 83036; 83540; 83550; 84439; 84443; 85025

== ENCOUNTER → 2024-06-05 11:53 | Outpatient (REF) | payer MEDICARE, OTHER, SELFPAY ==
[2024-06-05 12:05] LABS: % Basophils 0.4 % (0-2); % Eosinophils 0.3 % (0-6); % Immature Granulocytes 0.1 % (0-0.5); % Lymphocytes 23.4 % (20.5-51.1); % Monocytes 8.7 % (1.7-9.3); % Neutrophils 67.1 % (42.2-75.2); Absolute Lymphocytes 1.8 10^3/uL (1.2-3.4); Absolute Monocytes 0.7 10^3/uL (0.1-0.6); Absolute Neutrophils 5.1 10^3/uL (1.4-6.5); Hematocrit 36.5 % (39.0-52.0); Hemoglobin 11.7 g/dL (13.0-18.0); Mean Corp Hgb Conc. 32.1 g/dL (33.0-37.0); Mean Corpuscular Hgb 30.5 pg (27.0-31.0); Mean Corpuscular Volume 95.1 fL (80.0-94.0); Mean Platelet Volume 8.6 fL (7.4-10.4); Platelet Count 162 10^3/uL (130-400); Red Blood Cell Count 3.84 10^6/uL (4.70-6.10); Red Cell Dist. Width 12.8 % (11.5-14.5); White Blood Cell Count 7.7 10^3/uL (4.8-10.8)
== END ==
LOC: OIDL 11:53
PROVIDERS: ATTENDING PHYSICIAN Internal Medicine Hematology & Oncology
DX: C44.82 Squamous cell carcinoma of overlapping sites of skin (principal); D63.1 Anemia in chronic kidney disease
CPT/HCPCS: 85025

== ENCOUNTER → 2024-07-31 09:34 | Outpatient (REF) | payer MEDICARE, OTHER, SELFPAY ==
[2024-07-31 10:12] LABS: % Basophils 0.4 % (0-2); % Eosinophils 1.2 % (0-6); % Immature Granulocytes 0.3 % (0-0.5); % Lymphocytes 28.3 % (20.5-51.1); % Monocytes 10.7 % (1.7-9.3); % Neutrophils 59.1 % (42.2-75.2); Absolute Eosinophils 0.1 10^3/uL (0-0.7); Absolute Lymphocytes 2.1 10^3/uL (1.2-3.4); Absolute Monocytes 0.8 10^3/uL (0.1-0.6); Absolute Neutrophils 4.5 10^3/uL (1.4-6.5); Hematocrit 29.8 % (39.0-52.0); Hemoglobin 9.7 g/dL (13.0-18.0); Mean Corp Hgb Conc. 32.6 g/dL (33.0-37.0); Mean Corpuscular Hgb 30.7 pg (27.0-31.0); Mean Corpuscular Volume 94.3 fL (80.0-94.0); Mean Platelet Volume 8.7 fL (7.4-10.4); Platelet Count 119 10^3/uL (130-400); Red Blood Cell Count 3.16 10^6/uL (4.70-6.10); Red Cell Dist. Width 13.1 % (11.5-14.5); White Blood Cell Count 7.6 10^3/uL (4.8-10.8)
[2024-07-31 13:55] LABS: ALT (SGPT) 13 U/L (0-50); AST (SGOT) 23 U/L (17-59); Albumin 3.9 g/dl (3.5-5.0); Alkaline Phosphatase 131 U/L (38-126); Blood Urea Nitrogen 65 mg/dl (9-20); Calcium 9.1 mg/dl (8.4-10.2); Carbon Dioxide 24 mmol/L (22-30); Chloride 104 mmol/L (98-107); Direct Bilirubin 0.6 mg/dl (0.0-0.4); Glucose 242 mg/dl (70-99); Potassium 4.9 mmol/L (3.5-5.1); Sodium 138 mmol/L (135-145); Total Bilirubin 0.7 mg/dl (0.2-1.3); eGFR 26.28
[2024-07-31 14:16] LABS: Free T4 0.83 ng/dl (0.78-2.19)
== END ==
LOC: OIDL 09:34
PROVIDERS: ATTENDING PHYSICIAN Internal Medicine Hematology & Oncology; FAMILY PHYSICIAN Internal Medicine; REFERRING PHYSICIAN Internal Medicine Gastroenterology
DX: C44.82 Squamous cell carcinoma of overlapping sites of skin (principal); D63.1 Anemia in chronic kidney disease; I10 Essential (primary) hypertension; K51.90 Ulcerative colitis, unspecified, without complications; E03.9 Hypothyroidism, unspecified; I50.9 Heart failure, unspecified; N18.30 Chronic kidney disease, stage 3 unspecified
CPT/HCPCS: 36415; 80053; 80076; 84439; 84443; 85025; 86140

== ENCOUNTER → 2024-08-28 09:33 | Outpatient (REF) | payer MEDICARE, OTHER, SELFPAY ==
[2024-08-28 10:06] LABS: Hematocrit 32.7 % (39.0-52.0); Hemoglobin 10.5 g/dL (13.0-18.0); Mean Corp Hgb Conc. 32.1 g/dL (33.0-37.0); Mean Corpuscular Volume 96.7 fL (80.0-94.0); Platelet Count 130 10^3/uL (130-400); Red Cell Dist. Width 13.2 % (11.5-14.5)
[2024-08-28 11:15] LABS: Iron 93 ug/dl (49-181)
[2024-08-28 11:25] LABS: Total Iron Binding Capacity 279 ug/dl (261-462)
[2024-08-28 11:51] LABS: Ferritin 191.0 ng/ml (17.9-464.0)
== END ==
LOC: OIDL 09:33
PROVIDERS: ATTENDING PHYSICIAN Internal Medicine Hematology & Oncology; FAMILY PHYSICIAN Internal Medicine; REFERRING PHYSICIAN Internal Medicine Gastroenterology
DX: C44.82 Squamous cell carcinoma of overlapping sites of skin (principal); D63.1 Anemia in chronic kidney disease
CPT/HCPCS: 36415; 82728; 83540; 83550; 85025

== ENCOUNTER → 2024-09-11 11:00 | Outpatient (REF) | payer MEDICARE, OTHER, SELFPAY ==
[2024-09-11 12:02] LABS: Hematocrit 36.0 % (39.0-52.0); Hemoglobin 11.2 g/dL (13.0-18.0)
[2024-09-11 12:24] LABS: ALT (SGPT) 13 U/L (0-50); AST (SGOT) 23 U/L (17-59); Albumin 4.2 g/dl (3.5-5.0); Alkaline Phosphatase 123 U/L (38-126); Blood Urea Nitrogen 58 mg/dl (9-20); Calcium 9.8 mg/dl (8.4-10.2); Carbon Dioxide 32 mmol/L (22-30); Chloride 100 mmol/L (98-107); Glucose 127 mg/dl (70-99); Potassium 4.4 mmol/L (3.5-5.1); Sodium 139 mmol/L (135-145); Total Protein 7.9 g/dl (6.3-8.2); eGFR 26.28
[2024-09-11 12:55] LABS: TSH 16.10 uIU/ml (0.47-4.68)
== END ==
LOC: REG 11:00
PROVIDERS: ATTENDING PHYSICIAN Specialist; FAMILY PHYSICIAN Internal Medicine; REFERRING PHYSICIAN Internal Medicine Gastroenterology
DX: K51.90 Ulcerative colitis, unspecified, without complications (principal); R80.9 Proteinuria, unspecified; D64.9 Anemia, unspecified; E03.9 Hypothyroidism, unspecified; I10 Essential (primary) hypertension; I50.9 Heart failure, unspecified; N18.30 Chronic kidney disease, stage 3 unspecified
CPT/HCPCS: 36415; 80053; 82570; 83970; 84100; 84156; 84439; 84443; 85014; 85018

== ENCOUNTER → 2024-09-28 10:39 | Outpatient (REF) | payer MEDICARE, OTHER, SELFPAY ==
[2024-09-28 10:57] LABS: Hematocrit 33.7 % (39.0-52.0); Hemoglobin 10.7 g/dL (13.0-18.0); Mean Corp Hgb Conc. 31.8 g/dL (33.0-37.0); Mean Corpuscular Volume 96.8 fL (80.0-94.0); Platelet Count 155 10^3/uL (130-400); Red Cell Dist. Width 13.1 % (11.5-14.5)
== END ==
LOC: OIDL 10:39
PROVIDERS: ATTENDING PHYSICIAN Internal Medicine Hematology & Oncology; FAMILY PHYSICIAN Internal Medicine; REFERRING PHYSICIAN Internal Medicine Gastroenterology
DX: C44.82 Squamous cell carcinoma of overlapping sites of skin (principal); D63.1 Anemia in chronic kidney disease
CPT/HCPCS: 36415; 85025

== ENCOUNTER 2024-10-05 00:03 | Emergency (ER) | payer MEDICARE, OTHER, SELFPAY ==
[2024-10-05 00:07] VITALS: BP 165/95
[2024-10-05 00:33] VITALS: BP 156/84
[2024-10-05 00:34] VITALS: BP 156/84
--- NOTE | 2024-10-05 00:40 | ED.GENMED ---
History of Present Illness
General
Chief Complaint: Musculo-Skeletal Complaint
Source: patient
Exam Limitations: none
Time Seen by Provider: 10/05/24 00:34
History of Present Illness
History of Present Illness:
See MDM
Past History
Past History
ED Past Medical History: Arrthythmia (Atrial fibrillation), CAD, HTN, Hypercholesterolemia, IDDM and Other (History of colitis he, renal insufficiency, gout, osteoarthritis, hypothyroidism)
ED Past Surgical History: Cardiac (cabg, and ablation) and Other (liver transplant, hernia repair, and skin cancer removal)
Social History
Tobacco: Former smoker
Alcohol: None
Drug: None
Living: with family
Employment: Retired
Family History
Family History: Other (nc)
Phy Exam
Physical Exam
Physical Exam:
See MDM
Course
Orders/Labs/Results
Orders:
Orders
10/05/24 00:09
Ribs, Right 3 View W/PA Chest [CR Ribs-right 3 Vw W/pa Chest*] Urgent
Comment:
Reason For Exam: pain
10/05/24 00:42
Electrocardiogram (*1) Urgent
Reason for Study: Chest Pain
EKG- Treatment ONCE
Vital Signs
Initial and Last Documented VS:
Initial Vital Signs
Temp Pulse Resp BP Pulse Ox
97.9 F 88 18 165/95 97
10/05/24 00:07 10/05/24 00:07 10/05/24 00:07 10/05/24 00:07 10/05/24 00:07
Last Documented Vital Signs
Temp Pulse Resp BP Pulse Ox
97.9 F 78 18 156/84 96
10/05/24 00:07 10/05/24 00:34 10/05/24 00:34 10/05/24 00:34 10/05/24 00:42
MDM/Problems Addressed
Differential Diagnosis Includes:
Note:
CHIEF COMPLAINT(S)
Pain in the chest
HISTORY OF PRESENT ILLNESS
The patient is an 84-year-old male who experienced pain in the chest area while trying to get up. Earlier today, while attempting to get up from the floor using a stool, the patient felt something unusual in the chest area but continued working. The
patient reports feeling that something is 'out of place' and that there is sporadic discomfort in the chest. The pain does not intensify during breathing, and there is no evident difficulty in breathing. The patient expressed concern that a
structure might have dislocated or been fractured, though there is no clear account of hearing a pop.
PHYSICAL EXAM
General: Alert, no acute distress.
Skin: Warm, dry.
Head: Normocephalic, atraumatic
Neck: Appears supple, trachea midline.
Eyes, Ears, Nose, Mouth, and Throat: Oral mucosa moist.
Cardiovascular: No signs of cyanosis. Regular rate and rhythm
Chest: No palpable tenderness to right chest
Respiratory: Respirations are non-labored. Lungs clear
Abdomen: Non-distended
Musculoskeletal: No deformities
Neurological: No focal neurological deficit observed.
Psychiatric: Cooperative, appropriate mood and affect.
PLAN
Review chest X-ray to assess any potential fractures or dislocations.
Consider EKG to evaluate cardiac health and rule out any cardiac causes for the discomfort.
DIFFERENTIAL DIAGNOSIS
The Differential Diagnosis includes, in no particular order and is not limited to:
1. Rib fracture
2. Costochondritis
3. Musculoskeletal strain
4. Dislocation of the rib or sternum
5. Cardiac contusion
6. Pneumothorax
7. Pulmonary embolism
8. Myocardial infarction
9. Pleural effusion
10. Gastroesophageal reflux disease (GERD)
SUMMARY OF ENCOUNTER
The patient, an 84-year-old male, presented to the emergency department with chest pain following a fall. His main concern was that a structure in his chest might be out of place or fractured. A chest X-ray was ordered to assess for potential
fractures or dislocations but showed no obvious injuries, rib fractures, or pneumothorax. An EKG was also performed and was non-ischemic. After a discussion, the patient agreed with the possibility of musculoskeletal strain as the cause of his
discomfort.
DISPOSITION
Discharge
ASSESSMENT
Musculoskeletal strain following a fall, with no evidence of rib fracture or pneumothorax.
PLAN
Discharge the patient with instructions for rest and monitoring his symptoms. Consider [id number] pain relief as needed and advise to return if symptoms worsen or new symptoms arise.
INDEPENDENT REVIEW OF LABS AND INTERPRETATION OF TESTS
- My independent interpretation of the chest X-ray shows no obvious injury, rib fracture, pneumothorax, or pneumonia.
- My independent EKG interpretation is non-ischemic.
PATIENT EDUCATION AND COUNSELING
The patient was advised about the potential diagnosis of musculoskeletal strain and the expected recovery process. He was informed that [id number] pain medication could be used for discomfort and to avoid activities that may exacerbate the
pain.
FOLLOW-UP INSTRUCTIONS
The patient should schedule a follow-up visit with his primary care physician if symptoms do not improve or worsen.
MEDICAL DECISION MAKING
- Complexity of Data Reviewed: DDx includes rib fracture, costochondritis, musculoskeletal strain, dislocation of the rib or sternum, cardiac contusion, pneumothorax, pulmonary embolism, myocardial infarction, pleural effusion, GERD.
- Data:
- Category 1: Tests and documents
- My independent interpretation of chest X-ray and EKG.
- Risk:
Prescription medication was considered, but ultimately not given after discussion with patient/family.
DIAGNOSIS
Musculoskeletal strain (ICD-10: M62.81)
*Pulse Oximetry
SaO2: 96
Oxygen Mode of Delivery: Room air
Patient hypoxic: no
*Critical Care Note
Total Time (30-74mins, 75-104mins- exclusive of procedures): Not Applicable
ED Attending Note
-
Portions of this chart may have been created with voice recognition software.� Occasional wrong word or��sound alike� substitutions may have occurred due to the inherent limitations of voice recognition software.
Discharge Plan
Departure
Patient Disposition: Home (Routine Discharge)
Date of Disposition: 10/05/24
Time of Disposition: 01:07
Patient with high blood pressure during this ER visit?: Yes
Discharge Problem:
Muscle strain
Prescriptions:
No Action
metoprolol tartrate 25 MG tablet
25 mg PO BID
folic acid 1 MG tablet
1 mg PO DAILY
cyclosporine modified 50 MG capsule
50 mg PO BID
prednisone 5 MG tablet
5 mg PO MOWEFR
Eliquis 2.5 MG tablet
2.5 mg PO BID Qty: 0 0RF
pravastatin 40 mg Tablet
40 mg PO QPM
calcitriol 0.25 mcg Capsule
0.25 mcg PO DAILY
dutasteride 0.5 mg Capsule
0.5 mg PO HS
PreserVision AREDS 2,148 mcg-113 mg-45 mg-17.4mg Tablet
1 tab PO DAILY
sulfasalazine 500 mg Tablet
500 mg PO DAILY
mycophenolate mofetil 500 mg Tablet
500 mg PO BID
amlodipine [Norvasc] 10 mg Tablet
10 mg PO DAILY
sulfasalazine 500 MG tablet
1,000 mg PO QPM
furosemide 40 mg Tablet
40 mg PO DAILY Qty: 30 0RF
levothyroxine 100 mcg Tablet
125 mcg PO DAILY@0600 Qty: 30 0RF
insulin lispro protamin-lispro [Humalog Mix 75-25 KwikPen] 100 UNIT/ML insulin pen
15 unit SQ BID Qty: 0 0RF
Referrals:
Juanjose Anthony MD [Family Provider, Internal Medicine]
Activity Restrictions/Additional Instructions:
Please return for any worsening symptoms.
You may return at any time if you have further concerns.
Please follow up with your doctor at the first available appointment, preferably this week.
Thank you for choosing [facility].
Interventions
Interventions:
*Risk Screen - Suicide Last Done: 10/05/24 00:07
*General Assessment Last Done: 10/05/24 00:07
*Neglect/Abuse Screening Last Done: 10/05/24 00:07
*ED- Fall Risk Assessment Last Done: 10/05/24 00:29
*ED COVID-19 Vaccine History Last Done: 10/05/24 00:29
ED-Musculoskeletal Assessment Last Done: 10/05/24 00:28
Discharge Date and Time
Print Language: CZECH
[2024-10-05 01:00] VITALS: BP 144/81
== END 2024-10-05 01:18 | disposition home or self-care (01) ==
LOC: EMR 00:03
PROVIDERS: EMERGENCY PHYSICIAN Student in an Organized Health Care Education/Training Program; FAMILY PHYSICIAN Internal Medicine
DX: S29.011A Strain of muscle and tendon of front wall of thorax, initial encounter (principal); X58.XXXA Exposure to other specified factors, initial encounter; E03.9 Hypothyroidism, unspecified; E11.9 Type 2 diabetes mellitus without complications; E78.00 Pure hypercholesterolemia, unspecified; I10 Essential (primary) hypertension; I25.10 Atherosclerotic heart disease of native coronary artery without angina pectoris; I48.91 Unspecified atrial fibrillation; Z79.4 Long term (current) use of insulin; Z87.891 Personal history of nicotine dependence; Z94.4 Liver transplant status; Z95.1 Presence of aortocoronary bypass graft
CPT/HCPCS: 99284; 71101; 93005

== ENCOUNTER → 2024-10-10 10:09 | Outpatient (REF) | payer MEDICARE, OTHER, SELFPAY ==
[2024-10-10 11:30] LABS: Hematocrit 34.2 % (39.0-52.0); Hemoglobin 10.6 g/dL (13.0-18.0); Mean Corp Hgb Conc. 31.0 g/dL (33.0-37.0); Mean Corpuscular Volume 96.3 fL (80.0-94.0); Nucleated Red Blood Cells % 0 % (-); Platelet Count 152 10^3/uL (130-400); Red Cell Dist. Width 13.4 % (11.5-14.5)
[2024-10-10 12:29] LABS: C-Reactive Protein 9.50 mg/L (0.0-10.00)
[2024-10-10 12:35] LABS: ALT (SGPT) 11 U/L (0-50); AST (SGOT) 21 U/L (17-59); Albumin 4.0 g/dl (3.5-5.0); Alkaline Phosphatase 134 U/L (38-126); Blood Urea Nitrogen 58 mg/dl (9-20); Calcium 9.3 mg/dl (8.4-10.2); Carbon Dioxide 26 mmol/L (22-30); Chloride 106 mmol/L (98-107); Glucose 179 mg/dl (70-99); Iron 92 ug/dl (49-181); Potassium 4.9 mmol/L (3.5-5.1); Sodium 138 mmol/L (135-145); Total Protein 7.5 g/dl (6.3-8.2); eGFR 27.66
[2024-10-10 12:45] LABS: Total Iron Binding Capacity 275 ug/dl (261-462)
[2024-10-10 13:00] LABS: CEA 10.8 ng/ml
[2024-10-10 13:14] LABS: Ferritin 111.0 ng/ml (17.9-464.0)
== END ==
LOC: REG 10:09
PROVIDERS: ATTENDING PHYSICIAN Internal Medicine Hematology & Oncology; FAMILY PHYSICIAN Internal Medicine; REFERRING PHYSICIAN Internal Medicine Gastroenterology
DX: K51.90 Ulcerative colitis, unspecified, without complications (principal); C44.82 Squamous cell carcinoma of overlapping sites of skin; D63.1 Anemia in chronic kidney disease; R97.8 Other abnormal tumor markers
CPT/HCPCS: 36415; 80053; 82248; 82378; 82728; 83540; 83550; 85025; 86140

== ENCOUNTER → 2024-10-23 09:42 | Outpatient (REF) | payer MEDICARE, OTHER, SELFPAY ==
[2024-10-23 09:52] LABS: Hematocrit 30.5 % (39.0-52.0); Hemoglobin 9.8 g/dL (13.0-18.0); Mean Corp Hgb Conc. 32.1 g/dL (33.0-37.0); Mean Corpuscular Volume 96.5 fL (80.0-94.0); Platelet Count 127 10^3/uL (130-400); Red Cell Dist. Width 13.4 % (11.5-14.5)
== END ==
LOC: OIDL 09:42
PROVIDERS: ATTENDING PHYSICIAN Internal Medicine Hematology & Oncology; FAMILY PHYSICIAN Internal Medicine; REFERRING PHYSICIAN Internal Medicine Gastroenterology
DX: C44.82 Squamous cell carcinoma of overlapping sites of skin (principal); D63.1 Anemia in chronic kidney disease
CPT/HCPCS: 36415; 85025

== ENCOUNTER → 2024-11-20 09:07 | Outpatient (REF) | payer MEDICARE, OTHER, SELFPAY ==
[2024-11-20 09:30] LABS: Hematocrit 29.3 % (39.0-52.0); Hemoglobin 9.3 g/dL (13.0-18.0); Mean Corp Hgb Conc. 31.7 g/dL (33.0-37.0); Mean Corpuscular Volume 96.4 fL (80.0-94.0); Platelet Count 129 10^3/uL (130-400); Red Cell Dist. Width 13.4 % (11.5-14.5)
== END ==
LOC: OIDL 09:07
PROVIDERS: ATTENDING PHYSICIAN Internal Medicine Hematology & Oncology; FAMILY PHYSICIAN Internal Medicine
DX: C44.82 Squamous cell carcinoma of overlapping sites of skin (principal); D63.1 Anemia in chronic kidney disease
CPT/HCPCS: 36415; 85025

== ENCOUNTER → 2024-11-28 15:02 | Outpatient (REF) | payer MEDICARE, OTHER, SELFPAY ==
[2024-11-28 16:55] LABS: 24 Hour Urine Total Volume 600 ml
== END ==
LOC: REG 15:02
PROVIDERS: ATTENDING PHYSICIAN Specialist; FAMILY PHYSICIAN Internal Medicine; OTHER PHYSICIAN Internal Medicine Gastroenterology
DX: N18.32 Chronic kidney disease, stage 3b (principal); K51.90 Ulcerative colitis, unspecified, without complications
CPT/HCPCS: 81050; 82570; 83993; 84156

== ENCOUNTER → 2024-12-07 11:04 | Outpatient (REF) | payer MEDICARE, OTHER, SELFPAY | LOC: RAD 11:04 | PROVIDERS: ATTENDING PHYSICIAN Internal Medicine Hematology & Oncology; FAMILY PHYSICIAN Internal Medicine | DX: C44.82 Squamous cell carcinoma of overlapping sites of skin (principal); D63.1 Anemia in chronic kidney disease | CPT/HCPCS: 71250; 74176 ==

== ENCOUNTER → 2024-12-18 09:39 | Outpatient (REF) | payer MEDICARE, OTHER, SELFPAY ==
[2024-12-18 10:07] LABS: Hematocrit 30.1 % (39.0-52.0); Hemoglobin 9.5 g/dL (13.0-18.0); Mean Corp Hgb Conc. 31.6 g/dL (33.0-37.0); Mean Corpuscular Volume 97.7 fL (80.0-94.0); Platelet Count 141 10^3/uL (130-400); Red Cell Dist. Width 13.7 % (11.5-14.5)
[2024-12-18 10:59] LABS: Blood Urea Nitrogen 64 mg/dl (9-20); Iron 74 ug/dl (49-181)
[2024-12-18 11:08] LABS: Total Iron Binding Capacity 290 ug/dl (261-462)
[2024-12-18 11:38] LABS: Glycohemoglobin (HgbA1c) 6.3 % (4.0-5.9)
[2024-12-18 11:51] LABS: TSH 12.60 uIU/ml (0.47-4.68)
[2024-12-18 11:56] LABS: Ferritin 106.0 ng/ml (17.9-464.0)
== END ==
LOC: OIDL 09:39
PROVIDERS: ATTENDING PHYSICIAN Internal Medicine Hematology & Oncology; FAMILY PHYSICIAN Internal Medicine
DX: C44.82 Squamous cell carcinoma of overlapping sites of skin (principal); D63.1 Anemia in chronic kidney disease; E11.9 Type 2 diabetes mellitus without complications; E03.9 Hypothyroidism, unspecified
CPT/HCPCS: 36415; 82565; 82728; 83036; 83540; 83550; 84439; 84443; 84520; 85025

== ENCOUNTER → 2025-01-15 09:44 | Outpatient (REF) | payer MEDICARE, OTHER, SELFPAY ==
[2025-01-15 10:02] LABS: Hematocrit 32.5 % (39.0-52.0); Hemoglobin 10.1 g/dL (13.0-18.0); Mean Corp Hgb Conc. 31.1 g/dL (33.0-37.0); Mean Corpuscular Volume 97.0 fL (80.0-94.0); Platelet Count 130 10^3/uL (130-400); Red Cell Dist. Width 13.3 % (11.5-14.5)
== END ==
LOC: OIDL 09:44
PROVIDERS: ATTENDING PHYSICIAN Internal Medicine Hematology & Oncology; FAMILY PHYSICIAN Internal Medicine
DX: C44.82 Squamous cell carcinoma of overlapping sites of skin (principal); D63.1 Anemia in chronic kidney disease; E11.9 Type 2 diabetes mellitus without complications; E03.9 Hypothyroidism, unspecified
CPT/HCPCS: 36415; 85025

== ENCOUNTER → 2025-01-22 10:58 | Outpatient (REF) | payer MEDICARE, OTHER, SELFPAY ==
[2025-01-22 11:40] LABS: Hematocrit 35.6 % (39.0-52.0); Hemoglobin 11.2 g/dL (13.0-18.0); Mean Corp Hgb Conc. 31.5 g/dL (33.0-37.0); Mean Corpuscular Volume 95.4 fL (80.0-94.0); Nucleated Red Blood Cells % 0 % (-); Platelet Count 151 10^3/uL (130-400); Red Cell Dist. Width 13.4 % (11.5-14.5)
[2025-01-22 12:14] LABS: Blood Urea Nitrogen 56 mg/dl (9-20); Calcium 9.0 mg/dl (8.4-10.2); Carbon Dioxide 25 mmol/L (22-30); Chloride 101 mmol/L (98-107); Glucose 189 mg/dl (70-99); Potassium 4.8 mmol/L (3.5-5.1); Sodium 135 mmol/L (135-145); eGFR 23.87
[2025-01-22 12:15] LABS: C-Reactive Protein 10.60 mg/L (0.0-10.00)
== END ==
LOC: REG 10:58
PROVIDERS: ATTENDING PHYSICIAN Internal Medicine Gastroenterology; FAMILY PHYSICIAN Internal Medicine
DX: I10 Essential (primary) hypertension (principal)
CPT/HCPCS: 36415; 80048; 85025; 86140

== ENCOUNTER → 2025-02-07 14:42 | Outpatient (REF) | payer MEDICARE, OTHER, SELFPAY | LOC: WDC 14:42 | PROVIDERS: ATTENDING PHYSICIAN Internal Medicine Hematology & Oncology; FAMILY PHYSICIAN Internal Medicine Hematology & Oncology | DX: C44.82 Squamous cell carcinoma of overlapping sites of skin (principal); D63.1 Anemia in chronic kidney disease | CPT/HCPCS: 76642 ==